=== PATIENT | female | born 1955 | race Caucasian/White ===

== ENCOUNTER → 2016-08-03 | Outpatient (CLI) | payer OTHER ==
[~2016-08-03] MED LIST: ACYCLOVIR SOD1000 MG PO; ADVIL200 MG PO; ALIGN4 MG PO; ASPIR-LOW81 MG PO; BACITRACIN1 PKT TOP; CIPRO500 MG PO; COLACE100 MG PO; DILAUDID 2MG(HYD2 MG PO; DOXYCYCLINE100 MG PO; EFFEXOR XR75 MG PO; FEOSOL325 MG PO; FLAGYL500 MG PO; GLUCOPHAGE850 MG PO; IMODIUM2 MG PO; LEXAPRO20 MG PO; LIPITOR10 MG PO; LOPRESSOR50 MG PO; MAGNESIUM400 MG PO; MIMVEY LO 0.5-1 EACH PO; MIRALAX17 GM PO; MOBIC15 MG PO; NEOMYCIN500 MG PO; NEURONTIN300 MG PO; NITROGLYCERIN0.4 MG SL; NORCO 5-325 MG1 TAB PO; NORCO 5-325 TA1 EACH PO; NORVASC5 MG PO; TYLENOL EXTRA500 MG PO; VITAMIN D-40400 UNIT PO; XARELTO10 MG PO; ZOFRAN4 M1 PO; ZYRTEC10 MG PO
== END | disposition disaster alternative care site (69) ==
LOC: GRAD 09:10
DX: N20.0 Calculus of kidney (principal)

== ENCOUNTER → 2016-09-02 | Outpatient (CLI) | payer OTHER ==
--- NOTE | ~2016-09-02 | ESTC ---
Cardiac Perfusion Imaging Demographics Patient Name ARTHUR Gender Female JONATHAN Dykes Patient Number [id number] Race Visit Number [id number] Ethnicity Corporate ID Room Number Accession Number [id number] Height Date of 1955 Weight Age 61 year(s) BSA Referring Physician Alexandria Covarrubias MD BMI Jere Guevara Interpreting Jere Date of study 09/02/2016 Physician Ismael Supervising /BECKY ELDRIDGE Technologist Adrianna Guevara Ordering Physician Jere Saenz Rokandace Guevara trailer technician RDCS, RVT Stress ECG Reading Jere Nurse Vlad Garcia Physician Ismael Procedure Procedure Type: Nuclear Stress Test:Cardiolite Stress Test Procedure Start time: 09/02/2016 08:00 Indications: Angina and Dyspnea. Risk Factors The patient risk factors include:obesity, former tobacco use, treated hypercholesterolemia, treated hypertension, family history of premature CAD appeared at age 61, orally-treated diabetes mellitus, dyslipidemia and ( years not smokin). Conclusions Summary Perfusion Images: The overall quality of the study is good. Left ventricular cavity is noted to be normal on the stress and rest studies. There is no evidence of abnormal lung activity. The right ventricle is not visualized and cannot be assessed. Stress SPECT images demonstrate homogenous tracer distribution throughout the myocardium except for a mild decrease uptake in the area involving the lateral wall on rest images most likely due to soft tissue attenuation. Gated SPECT imaging reveals normal myocardial thickening and wall motion. The left ventricular ejection fraction was calculated to be 73%. Impression ECG portion of stress test is clinically negative for ischemia by diagnostic criteria. Myocardial perfusion imaging is probably normal. The mild lateral wall defect worse on rest images with normal wall motion is most likely due to artifact. Overall left ventricular systolic function was normal without regional wall motion abnormalities. There are no previous studies for comparison . Stress Protocols Resting ECG Sinus rhythm Pre-stress physical exam: Patient assessed by Dr Simms prior to testing. Predicted HR: 160 bpm ECG Findings No ECG changes suggestive of ischemia. Arrhythmias No rhythm abnormality. Symptoms [place] Stress Interpretation ECG portion of stress test is negative for ischemia by diagnostic criteria. Nuclear images are pending Imaging Results Summed scores - Summed stress score: 13 - Summed rest score: 15 - Summed difference score: -2 Stress ejection Ejection fraction:73 % EDV :124 ml ESV :33 ml Stroke volume :91 ml LV mass :150 gr Imaging Protocols Rest Stress Isotope:Tc99m Sestamibi IV Isotope: Tc99m Sestamibi IV Isotope dose:14.5 mCi Isotope dose:45 mCi Date:09/02/2016 06:57 Date:09/02/2016 08:35 Technique: SPECT Technique: Gated Supine SPECT Supine Scan Time:45-60 minutes post Scan Time:45-60 minutes post injection injection Procedure Medications - Regadenoson (Lexiscan) 0.4 mg IV over 10-15 sec. I.V. 0.4 mg. Medical History Admission Data Admission date: 09/02/2016 Admission Time: 06:40 Hospital Status: Outpatient. Signatures dtt: ISMAEL SIMMS dtd: 09/02/16 0800 Physician Self Edit
--- NOTE | ~2016-09-02 | PUL ---
PATIENT'S NAME: JONATHAN GIBSON [facility] AGE: 61 Y [address] ROOM: [place] [address] LOCATION: [facility] ADMIT DATE: 09/02/2016 Pulmonary DISCHARGE DATE: FAMILY PHYSICIAN: Lamar Ibrahim MD ATTENDING PHYSICIAN: ASH SIMMS NAME OF PROCEDURE: Pulmonary Function Test DATE OF PROCEDURE: September 02, 2016 TECH: JEFF Omalley REASON FOR EXAM: Dyspnea RESULTS: 1. FVC was 2.49 liters which is 78% of predicted and low, FEV1 was 2.09 liters which is 85% of predicted and normal, and FEV1/FVC was 84% and normal. The flow volume curve did not reveal any significant airflow limitation. After bronchodilator administration FVC increased to 2.57 liters which is a 3% increase and FEV1 decreased to 2.02 liters. FEV1/FVC was 79%. 2. DLCO was 15.3 with an adjusted DLCO of 16.5 which is 65% of predicted and low. 3. Total lung capacity was 4.79 liters which is 102% of predicted and normal, and residual volume was 2.3 liters which is 131% of predicted and normal. PHYSICIAN INTERPRETATION: The patient has no airflow limitation and no significant bronchodilator response. There is no evidence of restrictive lung disease. Her diffusion capacity is mildly low. This pattern of pulmonary function test can be seen in pulmonary vascular disorders. Clinical correlation is advised. MD CATRINA LOPEZ/madie /[id number] dtt: 09/06/16 1554 , KAYLENE PITT dtd: 09/06/16 0819
== END | disposition disaster alternative care site (69) ==
LOC: GRAD 08-30 07:00
DX: R06.00 Dyspnea, unspecified (principal); Z87.891 Personal history of nicotine dependence; E66.9 Obesity, unspecified; E78.00 Pure hypercholesterolemia, unspecified; E11.9 Type 2 diabetes mellitus without complications; E78.5 Hyperlipidemia, unspecified; I10 Essential (primary) hypertension
CPT/HCPCS: A9500; J2785

== ENCOUNTER 2016-11-21 18:54 | Inpatient (IN) | payer OTHER ==
[~2016-11-21] VITALS: Ht 160 cm; Wt 92.9 kg
--- NOTE | ~2016-11-21 | HP ---
PATIENT'S NAME: JONATHAN GIBSON [facility] AGE: 61 Y [address] ROOM: [id number] [place], [place] [address] LOCATION: [facility] ADMIT DATE: 11/21/2016 History & Physical DISCHARGE DATE: FAMILY PHYSICIAN: Lamar Ibrahim MD ATTENDING PHYSICIAN: ZIGGY JACK DATE OF SERVICE: CHIEF COMPLAINT: "Not feeling well." HISTORY OF PRESENT ILLNESS: I do not have complete information on this patient, as we are still waiting for some labs from the PMD's office. However, her history is provided by the patient and her family who are excellent historians. She is a 61-year-old female, who was discharged from [place] approximately 6 days ago. While in [place], the patient has undergone a reversal of colostomy and placement of an ileostomy with an intention of eventual takedown. The patient had a colostomy placed here approximately 9 months ago due to complicated case of diverticulitis, which required resection and has been having difficulties with a colostomy ever since, and as such, was sent to [place]. The patient also has past medical history of significant urolithiasis with prior stone extractions and stents. The patient and family reports that the patient has had bilateral urethral stents placed for the colostomy surgery to scarlett the ureters. Subsequent to the surgery, they were removed, but after that, the patient developed renal failure and apparently decided to be placed back in. The patient was released from the hospital in [place] on the 15 of November. Since then, she has been experiencing generalized fatigue, diminished appetite, and some nausea without any vomiting. Today, the patient went to see her primary care provider, Dr. Ibrahim, for staple removal. Apparently, she was found to have a UTI as well as acute kidney injury with a creatinine of 2, though I do not have those labs as of yet. Initially, she was instructed to go home, but once the labs came back, she was instructed to come to the hospital. The patient also was seeing Dr. Espinoza for vaginal bleeding today. This was attributed to discontinuation of her control and she had an ultrasound and the biopsy, with the ultrasound apparently being "normal." The patient denies any fevers, chills, chest pain, shortness of breath, diaphoresis, or syncope. PATIENT'S NAME: JONATHAN GIBSON [facility] AGE: 61 Y [address] ROOM: [place] [address] LOCATION: [facility] ADMIT DATE: 11/21/2016 History & Physical DISCHARGE DATE: FAMILY PHYSICIAN: Lamar Ibrahim MD ATTENDING PHYSICIAN: ZIGGY JACK REVIEW OF SYSTEMS: All systems have been reviewed and are negative aside from pertinent positives mentioned above. PAST MEDICAL HISTORY: 1. As provided by the patient is the surgical history/urological history as described in the HPI. 2. Essential hypertension. 3. Prediabetes. 4. Sepsis due to Enterococcus. SURGICAL HISTORY: Listed above is significant for bilateral knee arthroplasties. SOCIAL HISTORY: The patient has no active toxic habits, and quit tobacco use approximately 3 years ago. FAMILY HISTORY: Reviewed and noncontributory due to multiple underlying problems. CURRENT MEDICATIONS: 1. [place]. 2. Amlodipine 5. 3. Aspirin 81. 4. Atorvastatin 10. 5. Cetirizine 10. 6. Estradiol/norethisterone. 7. Metformin 850 with meals. 8. Metoprolol 50 twice a day. 9. Neomycin for dental work. 10. Effexor 150. PHYSICAL EXAMINATION: VITAL SIGNS: Temperature is 97.9, blood pressure 112/79, heart rate 91, respirations 16, and saturating 96% on room air. GENERAL: Appears as a well-developed, well-nourished, middle-aged female, in no acute distress. SKIN: Pale. NEUROLOGICAL: Nonfocal. HEENT: Eye exam shows pupils are equal and reactive to light. LYMPHATIC: Shows no cervical lymphadenopathy. ENDOCRINE: Shows no thyromegaly. LUNGS: Clear to auscultation. HEART: Regular. No appreciable murmurs, gallops, or rubs. PATIENT'S NAME: JONATHAN GIBSON [facility] AGE: 61 Y [address] ROOM: [place] [address] LOCATION: [facility] ADMIT DATE: 11/21/2016 History & Physical DISCHARGE DATE: FAMILY PHYSICIAN: Lamar Ibrahim MD ATTENDING PHYSICIAN: ZIGGY JACK ABDOMEN: Soft, nontender, nondistended. A right ileostomy is appreciated draining greenish liquid. SKIN: Reveals a midline incision with small areas of superficial dehiscence and some greenish drainage as well as prior colostomy site, which seems to be closing, but also has some small areas of superficial skin dehiscence and some greenish drainage. VASCULAR: 2+ pedal pulses. MUSCULOSKELETAL: Unremarkable. PSYCHIATRIC: Appropriate mood, cognition, and affect. ASSESSMENT AND PLAN: This is a 61-year-old female, who will be admitted with: 1. Reported acute kidney injury. We will hydrate the patient. We will repeat all her labs here, as I do not have her most recent set of labs. We will also get a renal ultrasound given her prior urological history. 2. Reported urinary tract infection. We will need to get a urinalysis with a culture here. We will treat her empirically given presence of foreign objects and prior history of multiple infections. 3. Wound Care. We will start treating her wound with Bactroban and request a wound as well as a surgical consult to help manage her wounds. 4. At this point, I do not see an indication for a CAT scan, but we will await the results of her labs and decide on imaging studies in addition to the ultrasound that is already planned. 5. Prediabetes. We will discontinue her metformin given elevated renal function. 6. Essential hypertension. We will continue her on amlodipine and metoprolol and hold them as needed. 7. Additional management will depend on clinical course and labs and imaging studies that are planned. Time dedicated to this patient's encounter is 35 minutes. MD CALEB PEARSON/rosenda /[id number] D: [id number] T: [id number] HISTORY & PHYSICAL
--- NOTE | ~2016-11-21 | DS ---
PATIENT'S NAME: JONATHAN GIBSON [facility] AGE: 61 Y [address] ROOM: [address] [place], [place] [address] LOCATION: [facility] ADMIT DATE: 11/21/2016 Discharge Summary DISCHARGE DATE: 11/23/2016 FAMILY PHYSICIAN: Lamar Ibrahim MD ATTENDING PHYSICIAN: James Gomez V FINAL DIAGNOSES: 1. Acute kidney injury. 2. Abdominal wound dehiscence. 3. Diabetes mellitus. 4. Urinary tract infection. 5. Essential hypertension. CONSULTANTS ON THE CASE: Adiel Richard MD and Estefany Barragan APRN from Wound. HOSPITAL COURSE: Please see details of admission in H and P by Dr. Gomez. Briefly, the patient was admitted with creatinine elevation with a level of 1.9. The patient did have a urinalysis positive for nitrites and leukocyte esterase, and it was thought that the PERLA was due to urinary tract infection. The patient was started on Cipro. She was covered with Lovenox for DVT prophylaxis. Tylenol was utilized for pain. The patient was pancultured with blood cultures, urine cultures, and procalcitonin. The patient did have Accu- Cheks twice daily, and was covered with sliding scale for any elevations. The patient's pain was a little out of control, and we did increase her pain medication to [place] 10/325. Wound Care consult was on the and recommended possible wound VAC and a Surgical consultation for further evaluation and treatment. Dr. Richard saw the patient on the , and just recommended twice daily wet-to-dry dressing changes. On the , the patient was doing much better. It was felt that from a renal standpoint, her creatinine had come down to 1.2, and that she could safely be discharged home. The patient was educated on abdominal wound dressing changes as well as ostomy information, and felt stable to discharge home. DIAGNOSTICS AND LABORATORY DATA: Blood sugars ranged from 97 to 117. On admission, sodium was 133, potassium was 4.4, chloride was 102, bicarb was 19, glucose was 104, BUN was 45, creatinine was 1.9, albumin was 3.4, Mag was 2.1, and TSH was 1.72. On discharge, sodium had risen to 137, creatinine dropped to 1.2, and pre-albumin was 29. Hemogram remained stable throughout her stay. Urinalysis was brown in color with nitrite and leukocyte esterase positive, and 500 of protein noted. On micro, 10 to 20 white blood cells, packed field of red blood cells, and few bacteria. Urine culture just showed contaminants of 52,000 colonies. Blood culture showed no growth to date. DISCHARGE INSTRUCTIONS: The patient was discharged home. She is to resume a PATIENT'S NAME: JONATHAN GIBSON [facility] AGE: 61 Y [address] ROOM: [address] [address] LOCATION: [facility] ADMIT DATE: 11/21/2016 Discharge Summary DISCHARGE DATE: 11/23/2016 FAMILY PHYSICIAN: Lamar Ibrahim MD ATTENDING PHYSICIAN: James Gomez V diabetic diet and resume previous activity level. She will follow up with Wound Ostomy Continence nurse at [facility] on 11/28/2016 at 08:30 a.m., to follow up with Dr. Richard in one week, and she will see Dr. Ibrahim in 1 week. Home Health will be resumed upon her discharge. The patient was instructed that if difficulties arise with her ostomy, she is to return to using her previous device and follow up with Wound Care on Monday. Home Health is to draw a metabolic panel on 11/25/2016 and fax it to Dr. Ibrahim. DISCHARGE MEDICATIONS: 1. Norvasc 5 mg daily. 2. Aspirin 81 mg daily. 3. Cipro 500 mg twice daily #2 days worth. 4. Zyrtec 10 mg at bedtime. 5. Metoprolol 50 mg twice daily. 6. Bactroban one application topically twice daily to wounds. 7. Effexor 150 mg daily. 8. Estradiol/norethindrone one tablet daily. 9. [place] 10/325 one tablet every 4 hours as needed. 10. Neomycin p.r.n. dental work. 11. Metformin 850 mg twice daily with meals. 12. Lipitor 10 mg daily. 13. Ferrous sulfate 325 mg twice daily. 14. Nitroglycerin 0.4 mg sublingual p.r.n. We do appreciate participating in this patient's care, and thank you very much for the ability to serve them while hospitalized at [facility]. Time spent coordinating details of discharge was less than 30 minutes of which was spent coordinating with consulting physician and care management, completion of medication reconciliation, and education to the patient and family on the above-mentioned diagnoses. ANGEL RAM FOR IDRIS FIELD MD TYRON/modl /[id number] d: 11/24/16 0500 t: 12/12/16 1619, DISCHARGE SUMMARY
--- NOTE | ~2016-11-21 | CON ---
PATIENT'S NAME: JONATHAN GIBSON [facility] AGE: 61 Y [address] ROOM: [facility] [place] [place] [address] LOCATION: G3N ADMIT DATE: 11/21/2016 Consultation DISCHARGE DATE: FAMILY PHYSICIAN: Lamar Ibrahim MD ATTENDING PHYSICIAN: CHRISTIANO SANCHEZ V CHIEF COMPLAINT: "I have a wound on my abdomen." HISTORY OF PRESENT ILLNESS: The patient is a 61-year-old female who is approximately 2 weeks status post colostomy reversal with ileostomy placement. This was performed in [place]. She had originally presented with sepsis here, was found to have a perforation in her sigmoid colon. She had resection an ostomy. We had planned ostomy reversal and had cleaned her distal stump out with an enema. This created significant pain. We then studied this with barium. No leak was identified, but she again got severe pain and fevers, had CT that was consistent with the inflammation and diverticulitis, because of this, we had her wait for surgical intervention ultimately, discussed with her having repeat resection in [place]. This was recently performed and now presents with acute kidney failure. She also had her misael removed very recently. With removal of her misael, she has had an opening. There was concern about a wound dehiscence. She has been having no fevers. She is feeling much better today. She has been rehydrated. CURRENT MEDICATIONS: 1. Cetirizine. 2. Estradiol. 3. Aspirin. 4. Lopressor. 5. Neomycin. 6. Hydrocodone. 7. Metformin. 8. Amlodipine. 9. Atorvastatin. 10. Venlafaxine. 11. Ferrous sulfate. 12. Nitroglycerin. ILLNESSES: 1. Hypertension. 2. Hyperlipidemia. SOCIAL HISTORY: Nonsmoker. FAMILY HISTORY: PATIENT'S NAME: JONATHAN GIBSON [facility] AGE: 61 Y [address] ROOM: [place] [address] LOCATION: G3N ADMIT DATE: 11/21/2016 Consultation DISCHARGE DATE: FAMILY PHYSICIAN: Lamar Ibrahim MD ATTENDING PHYSICIAN: CHRISTIANO SANCHEZ V Noncontributory. REVIEW OF SYSTEMS: Denies headache, vision changes, or abdominal pain. PHYSICAL EXAMINATION: GENERAL: Pleasant 61-year-old female, in no acute distress. HEENT: Head is normocephalic. Eyes are anicteric. HEART: Regular rate and rhythm. LUNGS: Clear to auscultation bilaterally. ABDOMEN: Soft. She does have an opening in her skin approximately 4 cm. This does probe to a depth of approximately 5 cm. However, on palpation of this area, I feel the fascia is intact. There is not large volume of fluid extending from this either. Her ileostomy is pink. ASSESSMENT: Superficial wound dehiscence. PLAN: At this point in time, we discussed VAC versus b.i.d. dressing changes. She does not wish to have a VAC. We will continue this as she still has a followup with her surgeon, Dr. Brooke in [place], but at this point in time, would not recommend surgical intervention. PEGGY J MD SAAD SMITH/theresal /[id number] d: 11/22/16 2254 t: 12/02/16 0609, CONSULTATION REPORT
--- NOTE | ~2016-11-21 | CON ---
PATIENT'S NAME: JONATHAN GIBSON [facility] AGE: 61 Y [address] ROOM: [place] [address] LOCATION: [facility] ADMIT DATE: 11/21/2016 Consultation DISCHARGE DATE: FAMILY PHYSICIAN: Lamar Ibrahim MD ATTENDING PHYSICIAN: CHRISTIANO SANCHEZ V DATE OF CONSULTATION: 11/22/2016 REFERRING PHYSICIAN: Christiano Sanchez MD REASON FOR CONSULT: Abdominal wound dehiscence. HISTORY OF PRESENT ILLNESS: This is a 61-year-old female patient who was admitted to [facility] with acute kidney injury and urinary tract infection. She has a history of a reversal of her colostomy with placement of an ileostomy with the intention of eventual takedown. The patient reports her ileostomy was placed on November 07 in [place]. She presented to her primary care provider for staple removal and was further admitted to the hospital. She has not been applying any treatment to the site. She is currently denying pain. She denies constitutional symptoms including fevers, chills, or sweats. She reports a fair oral intake. She denies chest pain or shortness of breath. She denies syncope. She does admit to some vaginal bleeding. PAST MEDICAL HISTORY: Essential hypertension, dyslipidemia, osteoarthritis, diverticulitis, nephrolithiasis, frequent UTIs, depression, and prediabetes. PAST SURGICAL HISTORY: Tubal ligation, total knee arthroplasty, cysto with stent placement, left knee arthroplasty, ruptured diverticula with colostomy placed, renal stent, colostomy takedown with temporary ileostomy placed, and 2 ureteral stents. FAMILY HISTORY: Positive for renal failure and CHF. SOCIAL HISTORY: The patient lives in [place]. Per previous records, she quit smoking in 2012. She is a social drinker. ALLERGIES: PENICILLIN, ATORVASTATIN, AND CODEINE. CURRENT MEDICATIONS: PATIENT'S NAME: JONATHAN GIBSON [facility] AGE: 61 Y [address] ROOM: [place] [address] LOCATION: [facility] ADMIT DATE: 11/21/2016 Consultation DISCHARGE DATE: FAMILY PHYSICIAN: Lamar Ibrahim MD ATTENDING PHYSICIAN: CHRISTIANO SANCHEZ V Please refer to the medication administration record. REVIEW OF SYSTEMS: Pertinent positives addressed in the HPI and all the rest are negative. PHYSICAL EXAMINATION: VITAL SIGNS: Temperature 97.9, pulse 81, respirations 14, blood pressure 122/54, and pulse oximetry 97% on room air. Height 5 feet 3 inches and weight 92.9 kg. GENERAL: The patient is alert and oriented x3. Very pleasant with cares. HEENT: Head: Normocephalic, atraumatic. Oral mucosa dry. NEUROLOGIC: Grossly nonfocal. MUSCULOSKELETAL: Able to wiggle toes. ABDOMEN: Soft, nontender. SKIN: Midline incision to abdomen. Distal aspect, dehiscence noted. Area measures 3.0 cm width x 4.5 cm length x 8.0 cm depth. Wound is moist pink with evidence of subcutaneous tissue. Large amount of serous exudate. Periwound is erythemic. No induration. Left upper abdomen old colostomy site measures 4.0 cm width x 1.0 cm length x 0.5 cm depth. Wound bed is mostly scabbed with a small amount of moist pink tissue. Periwound erythemic. Site is slightly indurated. Dried yellow exudate noted. LABORATORY DATA: White blood cell count 9.3, hemoglobin 11.7, hematocrit 36.4, platelets 401. Sodium 133, potassium 4.4, chloride 102, bicarb 19, BUN 45, creatinine 1.9, glucose 104, and pre-albumin 29. ASSESSMENT AND PLAN: Again, this is a 61-year-old female patient who was admitted to [facility] with acute kidney injury and urinary tract infection. Wound Care consult to evaluate abdomen dehiscence. 1. Abdomen dehiscence secondary to recent ileostomy placement. Appears down to subcutaneous tissue. Site will most likely heal by secondary intention. Would like Surgery to consult for further evaluation. The patient would be a VAC candidate; however, it would be difficult to change due to the close proximity of her ileostomy. For now, I instructed nursing to loosely pack the site with gauze changing t.i.d. and p.r.n. saturation. We will continue to follow. The ostomy nurses will follow patient's ileostomy during her hospitalization. I would like to thank Dr. Sanchez for this consult. PATIENT'S NAME: JONATHAN GIBSON [facility] AGE: 61 Y [address] ROOM: [address] [address] LOCATION: [facility] ADMIT DATE: 11/21/2016 Consultation DISCHARGE DATE: FAMILY PHYSICIAN: Lamar Ibrahim MD ATTENDING PHYSICIAN: CHRISTIANO SANCHEZ V EDUARDO GARCIA APRN FOR MD RANJITH RUBIO/modl /[id number] d: 11/23/16 0939 t: 11/30/16 1629, CONSULTATION REPORT
[~2016-11-21 18:54] MED LIST changes: -BACITRACIN1 PKT TOP; -EFFEXOR XR75 MG PO; -FEOSOL325 MG PO; -GLUCOPHAGE850 MG PO; -IMODIUM2 MG PO; -NITROGLYCERIN0.4 MG SL; -NORVASC5 MG PO; -VITAMIN D-40400 UNIT PO; -ZOFRAN4 M1 PO
[2016-11-21] MEDS ORDERED: GLUCOPHAGE850 MG PO (20:19)
[2016-11-21] MEDS ORDERED: NORVASC5 MG PO (20:21)
[2016-11-21] MEDS ORDERED: LIPITOR10 MG PO (20:21)
[2016-11-21] MEDS ORDERED: EFFEXOR XR75 MG PO (20:24)
--- NOTE | 2016-11-21 20:51 | NUR ---
Patient is 61 yo femaled admitted this evening for acute kidney injury, recent take down of colostomy and temporary ileostomy placed after she had a ruptured diverticuli last year after she had her knee replaced. Patient came home from [place] last week. Saw her Dr on Monday, misael were removed today by Dr. Ibrahim. patient was not feeling well and it was recommended that she be admitted to the hospital w/UTI. IV is started in patient's right hand w/20 ga intracath without diff. pt pooja well. patient's incision is midline with a slight curve left laterally from the umbilicus. there is some erythema on the superior aspect of the incision, but is approximated. the distal area of the incision not all the way distal there is some slight dehiscence approx 1.5 cm X 0.5 cm. left laterally to the incision is the area where the colostomy takedown was done. the misael were removed from here today also. the entire perimeter is slightly erythematous also. the incision is slightly dehisced here as well approx 1 cm by 2.5-3 cm. slight drainage is noted on the dressing from both areas of dehiscence, was slightly yellow in color. Education was given as documented. patient and family deny questions. pneumatics are on bilat calves. pt pooja well. call light is within reach. Report is given to UMESH Allison.
[2016-11-21 22:56] LABS: BASOPHIL % 0.3 %; EOSINOPHIL # 0.2 K/uL (0.0-0.5); EOSINOPHIL % 1.9 %; HEMATOCRIT 36.4 % (33.0-46.0); HEMOGLOBIN 11.7 g/dL (10.0-15.0); IMMATURE GRANULOCYTE # 0.1 K/uL (0.0-0.3); IMMATURE GRANULOCYTE % 1.2 %; LYMPHOCYTE # 1.6 K/uL (0.8-4.0); LYMPHOCYTE % 16.6 %; MCH 26.7 pg (27.0-34.0); MCHC 32.1 gm/dL (32.0-36.5); MCV 82.9 fl (83.0-98.0); MONOCYTE # 0.8 K/uL (0.0-1.0); MONOCYTE % 8.5 %; MPV 9.2 fl (9.4-12.4); NEUTROPHIL # (ANC) 6.7 K/uL (1.8-7.8); NEUTROPHIL % 71.5 %; NRBC % 0 /100WBC (0-0.00); PLATELET COUNT 401 K/uL (150-450); RDW-CV 15.5 % (11.9-14.6); WBC 9.3 K/uL (4.0-11.0)
[2016-11-21 22:57] LABS: RBC 4.39 M/uL (3.50-5.50)
[2016-11-21 23:16] LABS: INR - (THERAPEUTIC) 0.95 (0.92-1.07); PTT 28 SECONDS (25-32)
[2016-11-21 23:17] LABS: ALBUMIN 3.4 gm/dL (3.5-5.0); ANION GAP 16.4 (10.0-19.0); CALCIUM 9.3 mg/dL (8.5-10.5); CREATININE 1.9 mg/dL (0.5-1.1); MAGNESIUM 2.1 mg/dL (1.8-2.6); PHOSPHORUS 4.7 mg/dL (2.5-4.9); POTASSIUM 4.4 mMol/L (3.7-5.1); TOTAL BILIRUBIN 0.3 mg/dL (0.0-1.5); TOTAL PROTEIN 8.9 g/dL (6.0-8.4)
[2016-11-22 03:12] LABS: BILIRUBIN URINE NEGATIVE (NEGATIVE); BLOOD URINE 250 /UL (NEGATIVE); COLOR URINE BROWN (YELLOW); GLUCOSE URINE NEGATIVE (NEGATIVE); KETONE URINE 5 mg/dL (NEGATIVE); LEUKOCYTES URINE 100 /UL (NEGATIVE); NITRITE URINE POSITIVE (NEGATIVE); PROTEIN URINE 500 mg/dL (NEGATIVE); SPEC GRAVITY URINE 1.025 (1.003-1.035); TURBIDITY URINE 3+ (CLEAR); UROBILINOGEN URINE NORMAL (NORMAL)
[2016-11-22 03:23] LABS: RBC URINE PACKED FIELD #/HPF (NEGATIVE)
[2016-11-22 03:24] LABS: AMORPHOUS URINE 1+ (NEGATIVE); BACTERIA URINE FEW (NEGATIVE); EPITHELIAL URINE RARE #/HPF (NEGATIVE)
--- NOTE | 2016-11-22 04:37 | NUR ---
Significant Event: PATIENT ALERT AND ORIENTED X 3. VSS. TAKING SMALL AMOUNTS OF PO. VOIDING WITHOUT DIFFICULTY BUT URINE BLOODY. HAS ILEOSTOMY - EMPTIED BY PATIENT X 3 THIS SHIFT. HAS ABDOMINAL INCISION FROM COLOSTOMY TAKEDOWN. INCISION REDDNED AND HAS 3 OPEN AREAS WITH SOME YELLOW DRAINAGE. DEJAH WERE REMOVED AT [facility] TODAY. DRESSING PLACED OVER INCISION. HAS ABDOMINAL BINDER IN PLACE. UP WITH 1 ASSIST IN ROOM. PAIN WELL CONTROLLED WITH NORCO LAST AT 2218. IV INFUSING IN RIGHT HAND WITHOUT DIFFICULTY. PLEASNAT AND COOPERTIVE WITH CARES. Follow up:
[2016-11-22] MEDS ORDERED: FEOSOL325 MG PO (10:05)
[2016-11-22] MEDS ORDERED: NITROGLYCERIN0.4 MG SL (10:06)
--- NOTE | 2016-11-22 16:47 | NUR ---
Significant Event: Pt is a/o. Cooperative with cares. Has been up in levi and sat in chair, with much encouragement. She has been empyting ileostomy. WOC and Dr Mathias have seen abd incisions. Medial distal end has dehisced. Wet to dry dressing changes BID. Has been done once today. [place] for pain. Will need to check ileostomy Q 2hr during night and empty as needed, that way it doesnt leak or is kinked. Follow up:
[2016-11-23 05:50] LABS: BASOPHIL % 0.4 %; EOSINOPHIL # 0.2 K/uL (0.0-0.5); EOSINOPHIL % 2.7 %; HEMATOCRIT 31.5 % (33.0-46.0); HEMOGLOBIN 9.7 g/dL (10.0-15.0); IMMATURE GRANULOCYTE # 0.1 K/uL (0.0-0.3); IMMATURE GRANULOCYTE % 0.9 %; LYMPHOCYTE # 1.3 K/uL (0.8-4.0); LYMPHOCYTE % 22.8 %; MCH 25.8 pg (27.0-34.0); MCHC 30.8 gm/dL (32.0-36.5); MCV 83.8 fl (83.0-98.0); MONOCYTE # 0.8 K/uL (0.0-1.0); MONOCYTE % 13.4 %; MPV 8.6 fl (9.4-12.4); NEUTROPHIL # (ANC) 3.4 K/uL (1.8-7.8); NEUTROPHIL % 59.8 %; NRBC % 0 /100WBC (0-0.00); PLATELET COUNT 351 K/uL (150-450); RBC 3.76 M/uL (3.50-5.50); RDW-CV 15.3 % (11.9-14.6); WBC 5.6 K/uL (4.0-11.0)
--- NOTE | 2016-11-23 05:51 | NUR ---
Significant Event: PATIENT IS ALERT AND ORIENTED. PATIENT NEEDS INCREASED ENCOURAGEMENT TO GET UP TO CHAIR TID. AMBULATES TO BATHROOM TO EMPTY OWN OSTOMY BAG. WET TO DRY DRESSING TO ABDOMINAL WOUND. WE ARE TO PACK VERY LIGHTLY. PATIENT WAS OFFERED NORCO AT 0550 AND SHE DENIED THE NEED. NS INFUSING AT 100 ML/HR. BG BID. ABD BINDER ON AT ALL TIMES. Follow up:
[2016-11-23 06:13] LABS: ANION GAP 14.2 (10.0-19.0); CALCIUM 8.3 mg/dL (8.5-10.5); CREATININE 1.2 mg/dL (0.5-1.1); POTASSIUM 4.2 mMol/L (3.7-5.1)
--- NOTE | 2016-11-23 14:30 | NUR ---
RECEIVED REFERRAL THAT PATIENT CAN BE DISCHARGE HOME AND THAT TODAY AND WILL NEED TO RESUME [facility]. I SPOKE TO RUBEN WITH [facility] AND THEY WILL PLAN ON SEEING PATIENT TOMORROW. AND I FAXED ORDERS TO HER. I ALSO SPOKE TO PATIENT SHE IS PLANNING ON GOING HOME TODAY WITH [facility]. AND SHE DOES NOT ANTICIPATE ANY DISCHARGE NEEDS AT THIS TIME.
[2016-11-23] MEDS ORDERED: CIPRO500 MG PO (15:12)
[2016-11-23] MEDS ORDERED: BACITRACIN1 PKT TOP (15:14)
[2016-11-23] MEDS ORDERED: NORCO 5-325 TA1 EACH PO (15:18)
--- NOTE | 2016-11-23 16:13 | NUR ---
Patient was AOx3. VSS. Dressing was C/D/I. Patient had no questions or concerns about discharge instructions. Home Health to follow up at home. Patient was wheeled out to lobby for dismissal home with daughter.
[2016-12-16] MEDS ORDERED: IMODIUM2 MG PO (13:57)
== END 2016-11-23 16:00 | disposition home health service (06) | DRG 683 ==
LOC: GMSU 18:54 → G3N 18:54
PROVIDERS: Nurse Practitioner Family; ADMIT Internal Medicine
DX: N17.9 Acute kidney failure, unspecified (principal); N39.0 Urinary tract infection, site not specified; T81.30XA Disruption of wound, unspecified, initial encounter; E11.9 Type 2 diabetes mellitus without complications; I10 Essential (primary) hypertension; E78.5 Hyperlipidemia, unspecified; J30.2 Other seasonal allergic rhinitis; N93.9 Abnormal uterine and vaginal bleeding, unspecified; Z43.2 Encounter for attention to ileostomy; Z90.49 Acquired absence of other specified parts of digestive tract; Z87.891 Personal history of nicotine dependence; Z79.84 Long term (current) use of oral hypoglycemic drugs; Z79.82 Long term (current) use of aspirin; Z88.0 Allergy status to penicillin
CPT/HCPCS: A9270; J1650; J7030

== ENCOUNTER → 2016-11-25 | Outpatient (CLI) | payer OTHER ==
[~2016-11-25] MED LIST changes: +BACITRACIN1 PKT TOP; +EFFEXOR XR75 MG PO; +FEOSOL325 MG PO; +GLUCOPHAGE850 MG PO; +IMODIUM2 MG PO; +NITROGLYCERIN0.4 MG SL; +NORVASC5 MG PO; +VITAMIN D-40400 UNIT PO; +ZOFRAN4 M1 PO
[2016-11-25 20:18] LABS: ANION GAP 16.1 (10.0-19.0); CALCIUM 9.4 mg/dL (8.5-10.5); CREATININE 1.4 mg/dL (0.5-1.1); POTASSIUM 4.1 mMol/L (3.7-5.1)
== END | disposition disaster alternative care site (69) ==
LOC: LHHL 20:00
PROVIDERS: Family Medicine
DX: I12.9 Hypertensive chronic kidney disease with stage 1 through stage 4 chronic kidney disease, or unspecified chronic kidney disease (principal); N18.9 Chronic kidney disease, unspecified

== ENCOUNTER 2016-11-27 17:18 | Inpatient (IN) | payer OTHER ==
[~2016-11-27] VITALS: Ht 160 cm; Wt 93.8 kg
--- NOTE | ~2016-11-27 | ER ---
PATIENT'S NAME: JONATHAN GIBSON [facility] AGE: 61 Y [address] ROOM: [place] [address] LOCATION: ED ADMIT DATE: 11/27/2016 ER/Outpatient Report DISCHARGE DATE: FAMILY PHYSICIAN: Lamar Ibrahim MD ATTENDING PHYSICIAN: Justine Arreola Time of Arrival: 1718 hours. Time of Evaluation/Seen: 1735 hours. IDENTIFICATION: A 61-year-old female. CHIEF COMPLAINT: Nausea and vomiting. HISTORY OF PRESENT ILLNESS: The patient is a 61-year-old female with a fairly complicated past medical history. The patient was discharged from [place] approximately on November 15. While in [place], she had undergone a reversal of colostomy and placement of an ileostomy with an intention of eventual takedown. The patient had a colostomy placed here in November of 2015 for perforated viscus, perforated sigmoid colon after presenting acutely ill and septic to the hospital. That was a complicated case of diverticulitis, which required resection and she had been having difficulties with her colostomy and was sent to [facility] where she had this next surgery. She also has a history of urolithiasis and has bilateral ureteral stents. She was hospitalized here from November 21 to for acute kidney injury, abdominal wound dehiscence, and she has been doing daily wet-to- dry dressing changes. She has had no fever, chills, but just has not been feeling well over the past couple of days. PAST MEDICAL HISTORY: ALLERGIES: LIPITOR, PENICILLIN, AND CODEINE. CURRENT MEDICATIONS: 1. Metformin 850 mg b.i.d. 2. Metoprolol 50 mg b.i.d. 3. Aspirin 81 mg daily. 4. Amlodipine 5 mg daily. 5. Cetirizine 10 mg daily. 6. Atorvastatin 10 mg daily. 7. Ferrous sulfate 325 mg b.i.d. 8. daily. 9. Effexor 150 mg daily. PATIENT'S NAME: JONATHAN GIBSON [facility] AGE: 61 Y [address] ROOM: [place] [address] LOCATION: ED ADMIT DATE: 11/27/2016 ER/Outpatient Report DISCHARGE DATE: FAMILY PHYSICIAN: Lamar Ibrahim MD ATTENDING PHYSICIAN: Justine Arreola MEDICAL PROBLEMS: 1. Hypertension. 2. Prediabetes. 3. Sepsis due to enterococcus. 4. Complicated course of diverticulitis resulting in resection and colostomy. 5. Wound dehiscence. 6. Hyperlipidemia. 7. Hypertension. 8. Obesity. PAST SURGICAL HISTORY: Prior surgeries: 1. Bilateral total knee arthroplasty. 2. Ureteral stents. 3. Lithotripsy. 4. Colectomy. 5. Colostomy. 6. Tubal ligation. 7. Reversal of colostomy and placement of an ileostomy. SOCIAL HISTORY: The patient lives here in [place]. She is . Tobacco use, quit 3-1/2 years ago. Alcohol use, socially. Drug use, denies. REVIEW OF SYSTEMS: All systems reviewed and negative other than what is noted in the HPI. FAMILY HISTORY: No pertinent family history identified. PHYSICAL EXAMINATION: VITAL SIGNS: Height 5 feet 3 inches and weight 93.8 kg. Blood pressure 115/55, pulse 104, respiratory rate 16, temperature 98.2, and saturations 94% on room air. GENERAL: A 61-year-old female, in no acute distress. HEENT: Head; normocephalic and atraumatic. Ears; TMs translucent in both ears. Nose; mucosa pink, no lesions. Mouth; no lesions. Pharynx benign. NECK: Supple. No lymphadenopathy. LUNGS: Clear to auscultation. HEART: Regular rate and rhythm. ABDOMEN: Soft, nondistended, tender to palpation. No rebound or guarding. Ileostomy is draining adequately, but she does have a little bit of leaking on the medial aspect of the ileostomy appliance. PATIENT'S NAME: JONATHAN GIBSON [facility] AGE: 61 Y [address] ROOM: [place] [address] LOCATION: [facility] [employer] ADMIT DATE: 11/27/2016 ER/Outpatient Report DISCHARGE DATE: FAMILY PHYSICIAN: Lamar Ibrahim MD ATTENDING PHYSICIAN: Justine Arreola SKIN: She has a midline incision with an area of dehiscence at the caudal portion of this. No surrounding erythema, and then she has a superficial wound where the previous colostomy had been taken down that is covered with gauze. EXTREMITIES: Trace of edema. No calf tenderness. NEUROLOGIC: The patient is alert and oriented x4. Cranial nerves 2 through 12 grossly intact. Motor strength 5/5 throughout. Sensation is intact to light touch. EMERGENCY DEPARTMENT COURSE: An IV was initiated. Normal saline at 200 mL/h. Dilaudid 0.5 mg IV for pain. Zofran 4 mg IV for nausea. CBC, urine, chemistry, amylase, and lipase have been ordered. It is shift change and Dr. Bell will assume care at this time. JUSTINE ARREOLA MD CAR/modl /[id number] d: 11/27/161955 t: 12/03/162018, OUTPATIENT REPORT
--- NOTE | ~2016-11-27 | DS ---
PATIENT'S NAME: JONATHAN GIBSON [facility] AGE: 61 Y [address] ROOM: [address] [address] LOCATION: [facility] ADMIT DATE: 11/27/2016 Discharge Summary DISCHARGE DATE: 11/30/2016 FAMILY PHYSICIAN: Lamar Ibrahim MD ATTENDING PHYSICIAN: James Gomez V PRINCIPAL DIAGNOSES: 1. Acute kidney injury. 2. Metabolic acidosis. 3. Nausea with vomiting. 4. Uob-rmlmyhg-jfmockgyd diabetes mellitus. 5. Isolated alkaline phosphatase elevation. 6. Mild vitamin D deficiency. 7. Anemia. 8. Colostomy with superficial wound dehiscence. HOSPITAL COURSE: Please reference any of the admitting data to the history and physical as dictated by Dr. Gomez. Briefly, a 61-year-old female with colostomy takedown surgery approximately 20 days ago secondary to a history of previous ruptured diverticulum, presented to the emergency room with diminished appetite and associated nausea, vomiting, and leaking ileostomy. Evaluation found her to be in acute kidney failure with an elevated creatinine of 2.3 with a bicarbonate level of 17. Anion gap was closed. She was admitted into the hospital for further evaluation and management. She was started on IV fluids and kept n.p.o. overnight. Wound, Ostomy, and Continence Nursing was consulted to help manage her ileostomy appliance as well as her superficial wound secondary to a recent wound dehiscence. She was given symptomatic support of nausea and vomiting. She did relatively well overnight. Nausea had decreased. We did start her on clear liquids, and she was able to advance as she tolerated over the course of her stay. She was, however, still acidotic, so she was given IV bicarbonate 4 L and then serially monitored once complete, and we saw her creatinine fall from 2.3 down to 1.2. With that correction, appetite improved and was able to tolerate solid foods on the day of discharge. There was also felt to be some correlation of the abdominal discomfort as well as the nausea and vomiting associated with the iron tablets and metformin, so they were ceased, and our recommendations were for indefinite cessation. The patient also presented with an elevated alkaline phosphatase of 700 and a total bilirubin of 0.4. Further evaluation did not show any elevation of her AST or ALT. Amylase and lipase were negative. We did evaluate with an abdominal ultrasound which showed no acute problems. The biliary tree was borderline with the common duct at 7 mm, but this is to be expected with her recent surgical changes. She also had a CT abdomen and pelvis which had shown PATIENT'S NAME: JONATHAN GIBSON [facility] AGE: 61 Y [address] ROOM: [place] [address] LOCATION: [facility] ADMIT DATE: 11/27/2016 Discharge Summary DISCHARGE DATE: 11/30/2016 FAMILY PHYSICIAN: Lamar Ibrahim MD ATTENDING PHYSICIAN: James Gomez V no acute problems; however, did mention she had several punctate, nonobstructive, left renal stones as well as double-J bilateral ureteral stents with mild dilatation of the renal collecting system which did not appear as certain significance. Ostomy site was good. We trended her alkaline phosphatase level, which did come down after IV hydration to 455 and 520 respectively. Vitamin D investigations showed she was mildly low and was started on replacement therapy. Most likely etiology felt to be probably secondary to changes in her bowel anatomy secondary to her surgeries. Since we had stopped the patient's metformin upon discharge, she was covered with sliding scale insulin regimen and Accu-Cheks before each meal and at bedtime which revealed sugars between 97 and 130. At this point in time, we gave lifestyle, diet, and exercise modification education as well as the importance of checking her blood sugars twice daily and recommended for followup as metformin has been stopped indefinitely for the time being and may or may not have been related to her initial presenting problems. The remaining of her chronic conditions were maintained on her home medicines without any complication. DVT prophylaxis maintained with pneumatic compression devices and often ambulation of greater than 3 times daily and greater than 100 feet with each walk. The patient's superficial wound dehiscence at the colostomy site had significantly improved by documentation of the wound care nurse. Dr. Richard, general surgeon, who had seen the patient on previous hospitalization, did evaluate the patient while she was here and also felt there was a vast improvement. Wet-to-dry dressing changes were continued and will continue to need monitoring as an outpatient as well. LABORATORY DATA: Pertinent findings as discussed above in the Hospital Course. Most recent CBC showed a white blood cell count of 8.4, hemoglobin of 10.6, hematocrit of 32.9, and platelet count of 322. Chemistry panel showed a glucose of 90; BUN of 24; creatinine down to 1.2; sodium 139; potassium 4.0; chloride of 106; CO2 of 24, corrected from 19 and 17 respectively; and calcium 8.7. Total protein 7.2. Albumin 2.9. AST 29; ALT of 28; and alkaline phosphatase of 520, down from 700. Total bilirubin 0.2. Magnesium 1.7. Anion gap 13.0. GFR of 46. Her hemoglobin A1c was 5.9. Her initial presenting urinalysis showed red turbid urine with 100 leukocytes, negative nitrites, 500 protein, negative glucose, negative ketones, normal urobilinogen, and negative bilirubin. Microanalysis did show that she had a few bacteria and 10 to 20 white blood cells, but a culture of her urine showed probable contaminants. Amylase and lipase were negative. Iron studies done showed an iron of 18, TIBC of 219, and percent saturation of 6 with a ferritin PATIENT'S NAME: JONATHAN GIBSON [facility] AGE: 61 Y [address] ROOM: [place] [address] LOCATION: [facility] ADMIT DATE: 11/27/2016 Discharge Summary DISCHARGE DATE: 11/30/2016 FAMILY PHYSICIAN: Lamar Ibrahim MD ATTENDING PHYSICIAN: James Gomez V of 116.90. Vitamin B12 was 228. Folate of 14.3. Vitamin D level was 22. RADIOLOGIC IMAGING: Abdominal ultrasound relatively unremarkable, showing minimal collecting system prominence at the right kidney and biliary tree borderline with common duct of [address] abdomen and pelvis had shown said several punctates with nonobstructing left renal stones with double-J bilateral ureteral stents with mild dilatation of the renal collecting system, slightly more so on the right compared to the left, and an unremarkable appearance of the right lower quadrant ostomy site. CONSULTING PROVIDERS: Estefany Barragan APRN, Wound Care. DISCHARGE MEDICATIONS: 1. Amlodipine 5 mg p.o. every day. 2. Aspirin 81 mg p.o. every day. 3. Atorvastatin 10 mg p.o. every day. 4. Cetirizine 10 mg p.o. every night at bedtime. 5. Metoprolol 50 mg p.o. twice daily. 6. Effexor 150 mg p.o. every day. 7. Estradiol and norethindrone 0.5 to 0.1 mg tablet p.o. every day. 8. [place] 10/325 mg one tablet p.o. every 4 hours as needed. 9. Stop metformin. 10. Stop iron. 11. Nitroglycerin 0.4 mg sublingual every 5 minutes as needed for chest pain. 12. Vitamin D 800 units p.o. every day. DISCHARGE INSTRUCTIONS: The patient will be discharged to home to resume home health care. Her diet should remain diabetic 2000 calories. We did discuss the necessity of observation of her carbonates and proteins. She will need to check her blood sugars twice daily and take to her followup. Her activity is without any restrictions. To continue routine ostomy care and follow up in the Wound Clinic and with surgeon Dr. Richard in one week. Her rectal colon surgeon, Dr. Welch, is scheduled to see her on December 14 in [place]. We did go ahead and fax Dr. Richard and Estefany Barragan APRN, consultation notes and most recent wound care notes to his clinic for updates. She is also scheduled to undergo ureteral stent removals at that same timeframe which should go on as planned. She should also follow with her primary care doctor, Dr. Ibrahim, within the next week. I did recommend to have a CBC and CMS drawn at that time at the followup. Certainly, she can see her any sooner if she has problems occur or persist. Home health care is to continue as previous. PATIENT'S NAME: JONATHAN GIBSON [facility] AGE: 61 Y [address] ROOM: [place] [address] LOCATION: [facility] ADMIT DATE: 11/27/2016 Discharge Summary DISCHARGE DATE: 11/30/2016 FAMILY PHYSICIAN: Lamar Ibrahim MD ATTENDING PHYSICIAN: James Gomez V Total time arranging discharge was greater than 30 minutes as collaboration, discharge planning, and coordination with the wound care team, surgeon, updating colorectal surgeon in [place], and discussing line of management with Dr. Ibrahim, her primary care doctor. Thank you for allowing us to participate in the care of this patient while at [facility]. IGNACIO I MIGUELANGEL CRANDALL APRN FOR [employer] SUREKHA CARPIO/rosenda /[id number] CC: MD Lamar Ortega MD d: t: 12/01/16 1258, DISCHARGE SUMMARY
--- NOTE | ~2016-11-27 | CON ---
PATIENT'S NAME: JONATHAN GIBSON [facility] AGE: 61 Y [address] ROOM: [place] [address] LOCATION: [facility] ADMIT DATE: 11/27/2016 Consultation DISCHARGE DATE: FAMILY PHYSICIAN: Lamar Ibrahim MD ATTENDING PHYSICIAN: CHRISTIANO SANCHEZ V DATE OF CONSULTATION: 11/28/2016 REFERRING PHYSICIAN: Christiano Sanchez MD REASON FOR CONSULT: Abdominal wounds. HISTORY OF PRESENT ILLNESS: This is a 61-year-old female patient who was admitted to [facility] with acute kidney injury. She was discharged from the hospital last week. She has a history of a reversal of her colostomy with placement of an ileostomy with the intention of eventual takedown. She reports her ileostomy was placed on November 07 in [place]. She was admitted through the ER, and the web site developer applied a new pouch to the site. The patient was on home health and was packing her abdominal wounds with moist saline gauze, changing twice daily. The patient currently denies fevers, chills, or sweats. She denies abdominal pain. She reports a fair oral intake. She denies chest pain. She does continue to endorse nausea. She also complains of nephrolithiasis as well as UTI symptoms. PAST MEDICAL HISTORY: Essential hypertension; dyslipidemia; osteoarthritis; diverticulitis; nephrolithiasis; frequent UTIs; depression; and per the patient prediabetes. PAST SURGICAL HISTORY: Tubal ligation, total knee arthroplasty, cysto with stent placement, left knee arthroplasty, ruptured diverticula with colostomy placement and reversal, temporary ileostomy, renal stent, and 2 ureteral stents. FAMILY HISTORY: Positive for renal failure and CHF. SOCIAL HISTORY: The patient lives in [place] with her . Per previous records, she quit smoking in 2012. She reports she is a social drinker. ALLERGIES: PENICILLIN, ATORVASTATIN, AND CODEINE. CURRENT MEDICATIONS: PATIENT'S NAME: JONATHAN GIBSON [facility] AGE: 61 Y [address] ROOM: [place] [address] LOCATION: [facility] ADMIT DATE: 11/27/2016 Consultation DISCHARGE DATE: FAMILY PHYSICIAN: Lamar Ibrahim MD ATTENDING PHYSICIAN: CHRISTIANO SANCHEZ V Please refer to the medication administration record. REVIEW OF SYSTEMS: Pertinent positives addressed in the HPI and all the rest are negative. PHYSICAL EXAMINATION: VITAL SIGNS: Temperature 97.6, pulse 99, respirations 18, blood pressure 145/72, and pulse oximetry 100% on room air. Height 5 feet 3 inches and weight 93.8 kg. GENERAL: The patient is alert and oriented x3. In no acute distress. Pleasant with cares. HEENT: Head is normocephalic and atraumatic. Oral mucosa intact. NEUROLOGICAL: Grossly nonfocal. ABDOMEN: Soft and nontender. SKIN: Midline incision to abdomen. Distal aspect, wound dehiscence noted. Area measures 3.0 cm width x 4.5 cm length x 5.0 cm depth. Wound bed is moist pink. Periwound is slightly erythemic, but intact. Moderate serous exudate. Left mid abdomen wound measures 4.5 cm width x 0.7 cm length x 0.4 cm depth. Wound bed is moist pink and slightly scabbed. Periwound is erythemic. Site is slightly indurated. LABORATORY DATA: Hemoglobin A1c 5.9%. CRP 2.83. White blood cell count 8.4, hemoglobin 10.6, hematocrit 32.9, and platelets 322. Sodium 138, potassium 4.4, chloride 109, bicarbonate 19, BUN 32, creatinine 2.0, and glucose 93. Albumin is 3.0. ASSESSMENT AND PLAN: Again, this is a 61-year-old female patient who was admitted to [facility] with acute kidney injury. Wound Care consult for abdominal dehiscence. Abdominal dehiscence secondary to recent colostomy takedown. Wound is down to subcutaneous tissue and depth has filled in since I last visualized the site. We will continue with wet-to-dry dressing changes, changing b.i.d. The patient continues to refuse wound VAC therapy. I will continue to follow and make recommendations. We will need to possibly switch to Aquacel and a foam dressing as wound continues to fill in. The ostomy nurses will assess the patient's ileostomy site and make recommendations during her hospital stay. I discussed the importance of protein intake; however, the patient reports she is nauseated most of the time and hardly eating. I would like to thank Dr. Sanchez for this consult. PATIENT'S NAME: JONATHAN GIBSON [facility] AGE: 61 Y [address] ROOM: [address] [address] LOCATION: [facility] ADMIT DATE: 11/27/2016 Consultation DISCHARGE DATE: FAMILY PHYSICIAN: Lamar Ibrahim MD ATTENDING PHYSICIAN: CHRISTIANO SANCHEZ V RAZ SHANKAR MD MKS/rosenda /[id number] d: 11/28/161856 t: 12/05/16 1029, CONSULTATION REPORT
--- NOTE | ~2016-11-27 | HP ---
PATIENT'S NAME: JONATHAN GIBSON [facility] AGE: 61 Y [address] ROOM: [place] [address] LOCATION: [facility] [place] ADMIT DATE: 11/27/2016 History & Physical DISCHARGE DATE: FAMILY PHYSICIAN: Lamar Ibrahim MD ATTENDING PHYSICIAN: CHRISTIANO SANCHEZ V DATE OF SERVICE: CHIEF COMPLAINT: Diminished appetite and nausea and vomiting. HISTORY OF PRESENT ILLNESS: The patient is a 61-year-old female, familiar to me from prior hospitalization. Her ongoing amalgamation of medical problems is as follows: The patient has recently had a takedown of a colostomy and placement of ileostomy along with placement of bilateral ureteral stents in [place]. This was done due to difficulties with healing of prior colostomy, placed for a distant episode of diverticulitis. The patient also has had recurrent problems with nephrolithiasis and obstruction requiring prior stents in the past. The patient was discharged from our facility approximately 6 days ago. She was admitted with dehydration and a UTI. Since then, the patient has had no significant oral intake and today developed nausea and vomiting. She also has leaking around her right upper quadrant ileostomy. No fevers, chills, chest pain, shortness of breath, or diaphoresis associated with these symptoms. In the ER, the patient had an unremarkable CT scan of her abdomen and lab results showing increasing alkaline phosphatase and acute kidney injury. PAST MEDICAL HISTORY: In addition to the medical problems as described above is significant for: Hps-vamxcyr-dbvtclftf diabetes and depression. Essential hypertension. PAST SURGICAL HISTORY: As per HPI. CURRENT MEDICATIONS ARE: 1. Metformin 850 b.i.d. 2. Metoprolol 50 b.i.d. 3. Aspirin 81 daily. 4. Amlodipine 5 daily. 5. Cetirizine 10 daily. 6. Atorvastatin 10 daily. 7. Ferrous sulfate 325 b.i.d. PATIENT'S NAME: JONATHAN GIBSON [facility] AGE: 61 Y [address] ROOM: [place] [address] LOCATION: [facility] ADMIT DATE: 11/27/2016 History & Physical DISCHARGE DATE: FAMILY PHYSICIAN: Lamar Ibrahim MD ATTENDING PHYSICIAN: CHRISTIANO SANCHEZ V 8. control. 9. Effexor. FAMILY HISTORY: Reviewed and is noncontributory due to known underlying etiology for her presentation. SOCIAL HISTORY: Negative for any ongoing toxic habits. PHYSICAL EXAMINATION: VITAL SIGNS: Blood pressure 115/55, pulse is 104, respiratory rate is 76, temperature 98.0, and saturating 94% on room air. GENERAL: Well-developed, chronically ill-appearing, elderly female, in no acute distress. NEUROLOGIC: Nonfocal. EYES: Show pupils are equal and reactive to light. LYMPHATICS: Shows no cervical lymphadenopathy. ENDOCRINE: Shows no thyromegaly. LUNGS: Clear to auscultation. CARDIOVASCULAR: Heart rate is slightly tachycardic, regular with no appreciable murmurs, gallops, or rubs. GASTROINTESTINAL: Abdomen is soft, nontender, with leaking right upper quadrant colostomy and previously seen superficial dehiscence of her mid abdominal incision. There is also some discharge coming from the incision as well as from a healing left lower quadrant colostomy. VASCULAR: Shows 2+ pedal pulses. MUSCULOSKELETAL: No muscle or joint abnormalities. SKIN: Pale, warm, and dry. PSYCHIATRIC: Appropriate mood, cognition, and affect. LABORATORY DATA: Studies performed in the ER is a CAT scan which shows bilateral ureteral stents with mild bilateral hydronephrosis. Lab results are significant for sodium of 134, bicarbonate of 17, BUN 35, creatinine 2.3, and alkaline phosphatase is 700. White count 8.4, hemoglobin 10.6, and platelets of 322,000. Unremarkable differential. Urinalysis shows 500 protein, packed and 10-20 wbc's with packed rbc's. ASSESSMENT AND PLAN: This is a 61-year-old female, who was admitted with acute kidney injury. I believe that this is related to dehydration as well as metformin effects (the patient is quite acidotic). At this point, there is no evidence of a structural obstruction to her renal function. We will begin the patient on IV fluid hydration. We will check her urine function in the morning. We will PATIENT'S NAME: JONATHAN GIBSON [facility] AGE: 61 Y [address] ROOM: [address] [address] LOCATION: [facility] ADMIT DATE: 11/27/2016 History & Physical DISCHARGE DATE: FAMILY PHYSICIAN: Lamar Ibrahim MD ATTENDING PHYSICIAN: KAGANAS,CHRISTIANO V discontinue her metformin. 1. Nausea, vomiting, and diminished appetite. At this point, I would like to completely discontinue the patient's metformin as it can very well contribute to her diminished appetite. I think the patient is in a catabolic state due to ongoing wound issues and weight loss and as such, we should provide with adequate nutritional intake possible. We will also discontinue her iron as at this point her hemoglobin is normal. We will check her iron studies to see if she may benefit from any supplemental iron, but at this point, I would like to optimize her medical regimen to help encourage best oral intake possible. 2. Fin-xzwvold-qxkkrqctx diabetes. At this point, we will put her on a regular diet. Encourage oral intake. We will check a hemoglobin A1c and hold off on metformin indefinitely. We have other options to control her blood sugar if that becomes a problem. 3. Essential hypertension. We will continue the patient on her antihypertensive regimen. 4. Wound dehiscence. This is superficial and has been followed by Dr. Richard as well as Wound consult. We will get Wound consult to see her again. 5. Leaking colostomy. We will replace the colostomy bag and consider a followup surgical consultation. 6. Obstructive uropathy. This appears to be stable. 7. Alkaline phosphatase elevation. At this point, the underlying etiology of her alkaline phosphatase elevation is unclear. This alkaline phosphatase is unfractionated and as such, I would like to check her vitamin D to see if this may be the source from the bone. We will also get a right upper quadrant ultrasound. My suspicion is the patient may be severely vitamin D deficient. Additional management will depend on clinical course. Time dedicated for this patient's encounter is 35 minutes. MD CALEB PEARSON/rosenda /[id number] D: [id number] T: [id number] HISTORY & PHYSICAL
--- NOTE | ~2016-11-27 | ER ---
PATIENT'S NAME: JONATHAN GIBSON [facility] AGE: 61 Y [address] ROOM: [id number] [place], [place] [address] LOCATION: [facility] [place] ADMIT DATE: 11/27/2016 ER/Outpatient Report DISCHARGE DATE: FAMILY PHYSICIAN: Lamar Ibrahim MD ATTENDING PHYSICIAN: CHRISTIANO SANCHEZ V HISTORY OF PRESENT ILLNESS: This patient is a 61-year-old female, who presented to the emergency room with nausea, vomiting, weight loss, and abdominal pain. The patient was seen by Dr. Stephen initially on arrival to the emergency room. See Dr. Stephen's dictation in regard to the chief complaint, history of present illness, past medical history, physical exam. The patient has a leaking ileostomy. Dr. Stephen transferred the patient's care over to me at shift change. Dr. Stephen has asked me to follow up with the patient's laboratory, study results, final diagnosis, and treatment plan. The patient's CRP was elevated at 2.83. Her chemistry showed a slightly low sodium of 134, low anion gap of 17. Blood glucose is elevated at 114. BUN was 35, creatinine 2.3. GFR was low at 22. The patient had an alkaline phosphatase of 700. Amylase and lipase were normal. Urine showed 10-20 wbc's, packed rbc's, 0-2 epithelial cells, few bacteria per high- powered field, culture pending. Procalcitonin was 0.09. White count was 8400, 72 segs, 16 lymphs, 11 monos, 2 eos. Hemoglobin was 10.6, hematocrit 32.9, platelet count 322,000. The patient did get normal saline fluids, Zofran IV for nausea, Dilaudid IV for pain. CT scan of the abdomen and pelvis showed bilateral ureteral stents with mild bilateral hydronephrosis. The patient had normal liver, normal spleen, normal adrenal glands, normal spleen, normal bladder, normal pancreas, normal bony structure. She does have a right lower quadrant ostomy. No bowel obstruction, no free air or free fluid. CT scan was read by Radiology, see dictated and transcribed report. IMPRESSION: 1. Abdominal pain with nausea and vomiting. 2. Leaking ileostomy. 3. Wound dehiscence. 4. Renal failure. 5. Hypertension. 6. Obesity. 7. Anxiety and depression. 8. Remote tobacco abuse. 9. Hea-kowxkpy-uvfmhgkvm diabetes mellitus type 2. PLAN: Discussed the patient with Dr. Sanchez, hospitalist. Dr. Sanchez had come to the emergency room to evaluate the patient and admit the patient to the hospital. PATIENT'S NAME: JONATHAN GIBSON [facility] AGE: 61 Y [address] ROOM: [place] [address] LOCATION: [facility] [place] ADMIT DATE: 11/27/2016 ER/Outpatient Report DISCHARGE DATE: FAMILY PHYSICIAN: Lamar Ibrahim MD ATTENDING PHYSICIAN: CHRISTIANO SANCHEZ V MD MELANI PERKINS/modl /[id number] d: 11/27/16 2323 t: 11/28/16 1820, OUTPATIENT REPORT
[~2016-11-27 17:18] MED LIST changes: -IMODIUM2 MG PO; -VITAMIN D-40400 UNIT PO; -ZOFRAN4 M1 PO
[2016-11-27 18:23] LABS: BASOPHIL % 0.2 %; EOSINOPHIL # 0.1 K/uL (0.0-0.5); EOSINOPHIL % 1.5 %; HEMATOCRIT 32.9 % (33.0-46.0); HEMOGLOBIN 10.6 g/dL (10.0-15.0); IMMATURE GRANULOCYTE % 0.2 %; LYMPHOCYTE # 1.3 K/uL (0.8-4.0); LYMPHOCYTE % 15.9 %; MCH 26.6 pg (27.0-34.0); MCHC 32.2 gm/dL (32.0-36.5); MCV 82.5 fl (83.0-98.0); MONOCYTE # 0.9 K/uL (0.0-1.0); MONOCYTE % 10.6 %; MPV 9.1 fl (9.4-12.4); NEUTROPHIL % 71.6 %; NRBC % 0 /100WBC (0-0.00); PLATELET COUNT 322 K/uL (150-450); RBC 3.99 M/uL (3.50-5.50); RDW-CV 14.9 % (11.9-14.6); WBC 8.4 K/uL (4.0-11.0)
[2016-11-27 18:40] LABS: ALBUMIN 3.2 gm/dL (3.5-5.0); ANION GAP 15.6 (10.0-19.0); CALCIUM 9.4 mg/dL (8.5-10.5); CREATININE 2.3 mg/dL (0.5-1.1); POTASSIUM 4.6 mMol/L (3.7-5.1); TOTAL BILIRUBIN 0.4 mg/dL (0.0-1.5); TOTAL PROTEIN 8.7 g/dL (6.0-8.4)
[2016-11-27 19:33] LABS: BILIRUBIN URINE NEGATIVE (NEGATIVE); BLOOD URINE 250 /UL (NEGATIVE); COLOR URINE RED (YELLOW); GLUCOSE URINE NEGATIVE (NEGATIVE); KETONE URINE NEGATIVE (NEGATIVE); LEUKOCYTES URINE 100 /UL (NEGATIVE); NITRITE URINE NEGATIVE (NEGATIVE); PROTEIN URINE 500 mg/dL (NEGATIVE); SPEC GRAVITY URINE 1.015 (1.003-1.035); TURBIDITY URINE 4+ (CLEAR); UROBILINOGEN URINE NORMAL (NORMAL)
[2016-11-27 19:42] LABS: BACTERIA URINE FEW (NEGATIVE); EPITHELIAL URINE 0-2 #/HPF (NEGATIVE); RBC URINE PACKED FIELD #/HPF (NEGATIVE)
[2016-11-28 05:44] LABS: ANION GAP 14.4 (10.0-19.0); CALCIUM 8.5 mg/dL (8.5-10.5); MAGNESIUM 1.7 mg/dL (1.8-2.6); PHOSPHORUS 4.4 mg/dL (2.5-4.9); POTASSIUM 4.4 mMol/L (3.7-5.1)
--- NOTE | 2016-11-28 08:12 | NUR ---
61 year old female admitted for nausea, abdominal pain, and renal insuff. Allergies to codeine, lipitor, and penicillin. Hx. of HTN, Type II Diabetes, depression, ureteral stents, kidney stones, and ileostomy. Upon arrival ostomy leaking around edges. Appliance changed in ED. WOC to see first thing in Am. Abdominal US in AM. NPO at midnight. Regular diet. Pt. alert and oriented x3. RA. VSS. Voiding well. IV in L) forearm with fluids at 100ml/hour. SBA with gaitbelt. Zofran given at 0030.
--- NOTE | 2016-11-28 10:45 | NUR ---
Introduced self/role to patient and her Jeremiah, They live in [place]. Denied any barriers to going home or at home. Working with C. Does want [facility] to continue once discharged. Added my name to her marker board, will continue to follow. Added resume HHC to orders, placed note on the chart with C phone and fax number. [phone]ella from [facility] to update them on patient.
--- NOTE | 2016-11-28 16:29 | NUR ---
Significant event: Patient is alert and oriented. VSS on room air. IV to left wrist with fluids running. Has had zofran x1 and percocet x2. Last being at 1130. Switched to norco. Is on ACHS with mild SS. no coverage needed. Had ultrasound this morning. May have clear liquids and advance as tolerated. Did tolerate liquids for lunch. WOC changed ostomy appliance and it was leaking due to it not being clamped. Also dressings to abd changed, wound looking better. Is to ambulate in levi at least TID. Has been ambulating with stand by assist with , without difficulty. Cooperative with cares.
[2016-11-29 04:55] LABS: ALBUMIN 2.7 gm/dL (3.5-5.0); CALCIUM 8.6 mg/dL (8.5-10.5); CREATININE 1.4 mg/dL (0.5-1.1); MAGNESIUM 1.7 mg/dL (1.8-2.6)
[2016-11-29 04:57] LABS: TOTAL BILIRUBIN 0.3 mg/dL (0.0-1.5)
--- NOTE | 2016-11-29 05:13 | NUR ---
Pt. alert and oriented. VSS. RA. IV L) wrist - saline locked. Zofran x1 and norco x1 at HS with relief noted. ACHS with mild sliding scale - no insulin given. Diet is advance as tolerated. Changed ostomy appliance and is currently still leaking agian. WOC consult ordered. 1 assist. Did not eat much for supper. Cooperative with cares.
--- NOTE | 2016-11-29 14:37 | NUR ---
Significant Event: Pt c/o intermittent lower abd pain, good relief with pain meds. Nauseated x1, zofran given with relief. Up ad yefri in room/halls. Changed ostomy bag this am as it was leaking. WOC also changed wafer, has not leaked rest of shift. Changed wet/dry dressing to lower abd. Follow up:
--- NOTE | 2016-11-29 17:07 | NUR ---
Followed patient for HENRIQUE Stevenson today. Patient states doctor indicated she may be able to discharge to home tomorrow. She currently has home health care with [facility] and plans to resume that once she is discharged. Will continue to follow and will fax discharge orders to [facility] once they are ready.
--- NOTE | 2016-11-30 04:45 | NUR ---
Pt. alert and oriented. VSS. RA. Ilestomy to R) lower abdomen. IV L) wrist - saline locked. Last pain pill at HS with relief noted. Slept well throughout shift. Up ad yefri. BID wet/dry dressing on abdomen. ACHS with mild sliding scale. Did not give any insulin. Cooperative and plesant with cares. Possible discharge today.
[2016-11-30 05:01] LABS: ALBUMIN 2.9 gm/dL (3.5-5.0); CALCIUM 8.7 mg/dL (8.5-10.5); CREATININE 1.2 mg/dL (0.5-1.1); MAGNESIUM 1.7 mg/dL (1.8-2.6); TOTAL PROTEIN 7.2 g/dL (6.0-8.4)
[2016-11-30 05:03] LABS: TOTAL BILIRUBIN 0.2 mg/dL (0.0-1.5)
--- NOTE | 2016-11-30 13:00 | NUR ---
Called back [place]elia with [employer] #[phone], no discharge needs other then [facility] which she has approved. Home today. 1430 Faxed orders and meds to [facility].
[2016-11-30] MEDS ORDERED: VITAMIN D-40400 UNIT PO (15:56)
--- NOTE | 2016-11-30 16:20 | NUR ---
Significant Event: Patient has done well this shift. Does eat part of meals and is able to tolerate Ensure Enlive. Up ad yefri in room. Reviewed dressing changes with patient. Patient verbalized understanding. Patient and had questions regarding ostomy supplies--ostomy nurse able to answer questions for them. 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 After doctors ok'd patient to be dismissed, charge nurse processed orders and primary nurse reviewed orders with patient. Patient verbalized understanding of dismissal orders and signed dismissal paperwork. Patient in a wheelchair and taken down to the front doors for dismissal by AD COMPOSITOR. there with the car and going to take patient home.
[2016-12-16] MEDS ORDERED: IMODIUM2 MG PO (13:57)
== END 2016-11-30 16:18 | disposition disaster alternative care site (69) | DRG 683 ==
LOC: GMED 17:18 → GMSU 22:03
PROVIDERS: Family Medicine; Internal Medicine; ADMIT Internal Medicine
DX: N17.9 Acute kidney failure, unspecified (principal); T81.30XA Disruption of wound, unspecified, initial encounter; E87.2 Acidosis; K94.13 Enterostomy malfunction; E11.9 Type 2 diabetes mellitus without complications; D50.9 Iron deficiency anemia, unspecified; E86.0 Dehydration; R11.2 Nausea with vomiting, unspecified; T38.3X5A Adverse effect of insulin and oral hypoglycemic [antidiabetic] drugs, initial encounter; N13.9 Obstructive and reflux uropathy, unspecified; E55.9 Vitamin D deficiency, unspecified; D64.9 Anemia, unspecified; N20.0 Calculus of kidney; E78.5 Hyperlipidemia, unspecified; F32.9 Major depressive disorder, single episode, unspecified; Z87.891 Personal history of nicotine dependence; Z79.84 Long term (current) use of oral hypoglycemic drugs; Z79.82 Long term (current) use of aspirin
CPT/HCPCS: A9270; J1170; J2405; J7030; J7060

== ENCOUNTER 2016-12-03 18:58 | Inpatient (IN) | payer OTHER ==
[~2016-12-03] VITALS: Ht 160 cm; Wt 96.3 kg
--- NOTE | ~2016-12-03 | DS ---
PATIENT'S NAME: JONATHAN GIBSON [facility] AGE: 61 Y [address] ROOM: [address] [place], [place] [address] [place]: [facility] [place] ADMIT DATE: 12/03/2016 Discharge Summary DISCHARGE DATE: 12/08/2016 FAMILY PHYSICIAN: Lamar Ibrahim MD ATTENDING PHYSICIAN: Yobany Horton PRINCIPAL DIAGNOSES: 1. Intractable nausea, vomiting, and abdominal pain. 2. Recent history of reversal of colostomy with placement of an ileostomy. 3. Acute kidney injury. 4. Urinary tract infection. 5. Type 2 diabetes. 6. Status post ileostomy. HOSPITAL COURSE: Please refer to admitting history and physical for a detailed history on initial presentation. This is a 61-year-old female with a known history of recent reversal colostomy then ileostomy and then recurrent admission with a persistent waxing and waning intractable nausea and vomiting and presented with same concerns again. The patient on initial evaluation was noted to be dehydrated and an PERLA with creatinine of 2.1. The patient on presentation was not able to tolerate p.o. intake for 2+ days prior to presentation due to ongoing nausea, vomiting, and abdominal pain. The patient was admitted and supportive care had ensued and was also evaluated by the General Surgery Team. As far as her previous surgical history including recurrent ileostomy everything seemed to be working appropriately. CAT scan of her abdomen with oral contrast done did not show any signs of obstruction and overall did not show any significant findings to explain her symptoms. In any case, the patient today is doing well, tolerating oral intake very well, and nausea and vomiting had been adequately controlled with p.r.n. Zofran. We talked to the patient's general surgeon in [place] that did her initial surgery as well as Dr. Richard and the plan is to continue supportive care and continue to let her bowels heal from multiple surgeries that she has had. I spent a long time discussing this plan with the patient and the patient's and is currently now ready to be discharged in stable condition. In any case, the patient's symptoms recur, we will work on perhaps transferring to [place] to Dr. Welch for further evaluation. The patient currently has an appointment in [place] to see her surgeon on the . She will see her primary care physician within a week as well as with Dr. Richard in 2 to 3 weeks and as needed. The patient of note had been taking metformin for her diabetes and I wonder if metformin use has something to do with her GI symptoms. In any case, I will hold metformin and the patient preference to followup with her primary care physician and deciding other agents to use for her diabetes. PHYSICAL EXAMINATION: GENERAL: On exam today, the patient is awake, alert, oriented x3, in no acute distress. PATIENT'S NAME: JONATHAN GIBSON [facility] AGE: 61 Y [address] ROOM: [address] [address] LOCATION: [facility] [place] ADMIT DATE: 12/03/2016 Discharge Summary DISCHARGE DATE: 12/08/2016 FAMILY PHYSICIAN: Lamar Ibrahim MD ATTENDING PHYSICIAN: Yobany Horton CHEST: Clear to auscultation bilaterally. HEART: S1, S2. Regular rate and rhythm. ABDOMEN: Soft, nontender, nondistended. EXTREMITIES: Without edema. Ileostomy site working well, no signs of wound dehiscence noted. MEDICATIONS: Continue her home medications, hold metformin, we will discharge her on Zofran ODT 4 mg q.8 h. as needed, and I have encouraged her to use Tylenol for pain management as much as possible and avoid narcotics as this can exacerbate nausea as well. Greater than 30 minutes were spent in discharge planning and facilitating. MD SHELIA SCHAEFER/rosenda /[id number] d: 12/09/16 0459 t: 12/12/16 1510, DISCHARGE SUMMARY
--- NOTE | ~2016-12-03 | ER ---
PATIENT'S NAME: JONATHAN GIBSON [facility] AGE: 61 Y [address] ROOM: [address] [address] LOCATION: [facility] [place] ADMIT DATE: 12/03/2016 ER/Outpatient Report DISCHARGE DATE: FAMILY PHYSICIAN: Lamar Ibrahim MD ATTENDING PHYSICIAN: Yobany Horton Time of Arrival: 1858 hours. Time of Evaluation: 1910 hours. CHIEF COMPLAINT: Nausea, vomiting, and weakness. HISTORY OF PRESENT ILLNESS: This is a 61-year-old female, who presents to the ER, who states that she has not been feeling well since early this morning. The patient has a fairly complicated past medical history. She states that she had an abdominal surgery done in [place] on November 15. She states she had a reversal of colostomy and placement of ileostomy with an intention of an eventual takedown of that ileostomy. She states since that surgery she has been hospitalized 2 times here at [facility]. She states that one of the hospitalizations was due to abdominal wound dehiscence and acute kidney injury. She states the other time, she believes that, she was admitted for dehydration and weakness. She states her most recent hospitalization was just this last week, and she was dismissed on Monday. She states that she began having nausea and vomiting today. She has been running some low-grade fevers and has some generalized abdominal pain. The patient states she has had good output out of her ileostomy, and she states that they have been doing some dressing changes and just completed those this evening prior to arrival. She also states that she has some urethral stents placed and those should be removed on December 14. The patient's states that they believe some of her symptoms were due to some of the medications she was on, so they did take her off some medications. ALLERGIES: LIPITOR, PENICILLIN, AND CODEINE. MEDICATIONS: Please see medication list, nurse's notes. PAST MEDICAL HISTORY: 1. Hypertension. 2. Prediabetes. 3. Sepsis due to enterococcus. 4. Complicated course of diverticulitis resulting in resection and colostomy with takedown to ileostomy. She has had a recent history of wound PATIENT'S NAME: JONATHAN GIBSON [facility] AGE: 61 Y [address] ROOM: [address] [address] LOCATION: [facility] [place] ADMIT DATE: 12/03/2016 ER/Outpatient Report DISCHARGE DATE: FAMILY PHYSICIAN: Lamar Ibrahim MD ATTENDING PHYSICIAN: Yobany Horton dehiscence from that surgery. 5. Hyperlipidemia. 6. Hypertension. 7. Obesity. PAST SURGERIES: 1. Total knee arthroplasty. 2. Urethral stents. 3. Lithotripsy. 4. Cholecystectomy. 5. Colostomy. 6. Tubal ligation. 7. Reversal of colostomy and placement of ileostomy. SOCIAL HISTORY: She does live here in [place] for the last 13 months, otherwise they were previously from [place]. REVIEW OF SYSTEMS: All systems reviewed were negative with the exception of those discussed in the HPI. PHYSICAL EXAMINATION: VITAL SIGNS: Height 5 feet 3 inches stated, weight 91.9 kg taken, blood pressure is 137/74, pulse 102, respirations 18, temperature 100.7 degrees tympanically, saturations 97% on room air. [place] Coma Score is 15. GENERAL: Alert, pleasant female, in no acute distress. HEENT: Head: Normocephalic. She does display moist mucous membranes. Eyes: Pupils are equal and reactive to light. NECK: Supple. No lymphadenopathy. LUNGS: Clear to auscultation. HEART: Slightly tachycardic. Normal rhythm. ABDOMEN: Soft. It is nondistended. She has some generalized tenderness to palpation in all 4 quadrants. No guarding or rebound tenderness. Her ileostomy is draining adequately. SKIN: She does have a midline incision with some wet-to-dry packing noted to that, healing incision site. There is no surrounding erythema, no active drainage from that area. She also has 2 other small incisions that are open, that are just covered with gauze. There is no surrounding erythema with those. There are no active drainage from those. EXTREMITIES: She does have good range of motion of her lower extremities. No edema noted. NEURO: Cranial nerves 2 through 12 grossly intact. The patient is alert and oriented. PATIENT'S NAME: JONATHAN GIBSON [facility] [place] AGE: 61 Y [address] ROOM: [address] [address] LOCATION: [facility] [place] ADMIT DATE: 12/03/2016 ER/Outpatient Report DISCHARGE DATE: FAMILY PHYSICIAN: Lamar Ibrahim MD ATTENDING PHYSICIAN: Yobany Horton LABORATORY DATA: CBC: White count is 8.9, hemoglobin is 10.1, platelets are 250, ANC is 6.9. CMS: Sodium is 135, potassium is 4.5, glucose is 114, BUN is 24, creatinine is 1.9, alkaline phosphatase is 634, AST is 30, ALT is 42, estimated GFR is 27. Urinalysis: Leukocytes 500, nitrites negative, protein 500, blood is 250. UA micro: White blood cells 20 to 50, red blood cells 50 to 100, epithelial 0 to 2, bacteria many, yeast few, white blood cell clumps moderate. Clot was drawn. IMPRESSION: 1. Nausea and vomiting. 2. Weakness. 3. Recent abdominal surgery done in November, colostomy takedown to ileostomy. 4. Urinary tract infection with history of urethral stents 5. Alkaline phosphatase elevation. ASSESSMENT AND PLAN: I did discuss the patient's care with Dr. Stephen. We did start an IV here in the emergency room and did give her some IV fluids along with 4 mg of Zofran and 0.5 mg of Dilaudid. The patient did rest comfortably here her entire stay. I did speak with Dr. Horton in regard to the patient; he will be placing the patient back in the hospital for further observation. The patient and the patient's understand and agree with care. VERNON GORE PA-C FOR MD HAROLDO BAUTISTA/rosenda /[id number] d: 12/04/16 0349 t: 12/09/16 1249, OUTPATIENT REPORT
--- NOTE | ~2016-12-03 | HP ---
PATIENT'S NAME: JONATHAN GIBSON [facility] AGE: 61 Y [address] ROOM: [place] [address] LOCATION: [facility] ADMIT DATE: 12/03/2016 History & Physical DISCHARGE DATE: FAMILY PHYSICIAN: Lamar Ibrahim MD ATTENDING PHYSICIAN: Josefina Camacho DATE OF SERVICE: CHIEF COMPLAINT: "Not feeling well." HISTORY PRESENTING ILLNESS: This 61-year-old, white female, who is well known to our service, returned to the emergency department this evening with complaints of nausea, vomiting, weakness, and lethargy of a little more than 24 hours' duration. She was just discharged this past Monday for similar complaints. She had been treated previously for urinary tract infection. Cultures grew E. coli, that were pansensitive. She reports she felt well on the day of her discharge. The next day she felt even better, however on Monday, she began to feel progressively unwell. She developed progressive nausea and then this morning she was unable to keep anything down at all. She complains of feeling progressively weaker. She thinks she has had some low-grade fevers, but admits she has not actually taken her temperature. She denies headache, does complain of a little dizziness and lightheadedness, but has not fallen. No visual disturbances. She denies chest pain or shortness of breath. No significant congestion or cough. She denies any significant abdominal pain. She continues to perform wet-to-dry dressings to a draining wound next to the ileostomy. The ileostomy itself has been functioning normally. She does admit to some mild dysuria, but denies frequency or urgency. No numbness or tingling in her extremities or any associated physical or constitutional complaints. ALLERGIES: PENICILLIN, CODEINE, AND ATORVASTATIN. ILLNESSES: 1. Diverticulitis, status post resection with colostomy and subsequent takedown, then ileostomy. 2. Obstructive uropathy, status post bilateral ureteral stent placement. 3. Diabetes mellitus, type 2. 4. Essential hypertension. 5. Iron deficiency anemia. 6. Hyperlipidemia. 7. Morbid obesity. PATIENT'S NAME: JONATHAN GIBSON [facility] AGE: 61 Y [address] ROOM: [place] [address] LOCATION: [facility] ADMIT DATE: 12/03/2016 History & Physical DISCHARGE DATE: FAMILY PHYSICIAN: Lamar Ibrahim MD ATTENDING PHYSICIAN: Josefina Camacho 8. Depression/anxiety. 9. Isolated elevation of alkaline phosphatase. CURRENT MEDICATIONS: 1. Amlodipine 5 mg p.o. daily. 2. Aspirin 81 mg p.o. daily. 3. Atorvastatin 10 mg p.o. daily. 4. Cetirizine 10 mg p.o. at bedtime. 5. Metoprolol 50 mg p.o. b.i.d. 6. Effexor 150 mg p.o. daily. 7. Estradiol/norethindrone 0.5-1 mg tablet p.o. daily. 8. Egan 10/325 one tab p.o. q.4 hours p.r.n. 9. Nitroglycerin p.r.n. 10. Vitamin D 800 units p.o. daily. FAMILY HISTORY: Negative for heart disease or stroke. SOCIAL HISTORY: She is . Lives here in [place]. She is a homemaker. She does have a [id number] history of smoking tobacco, but has been quit for a little more than 3 years. No significant alcohol use. REVIEW OF SYSTEMS: As per HPI. All other organ systems reviewed and are negative. OBJECTIVE: VITAL SIGNS: Temperature 100, pulse 90, respirations 16, blood pressure 119/64, and O2 saturation 94% on room air. GENERAL: She is very pleasant, cooperative, lying in bed, in no acute distress. SKIN: Supple, pink, warm, and dry. There are no obvious rashes. The wound overlying the mid abdomen is clean and intact. There is some wet gauze present, a little bit of exudative debris, but no purulence. The ileostomy site is intact. HEENT: Otherwise, normocephalic. Sclerae nonicteric. Pupils are equal, round, and reactive to light and accommodation. Extraocular movements appear intact. Nasal turbinates are normal in appearance. Oropharynx is clear. Mucous membranes are pink and moist. NECK: Supple. No masses or adenopathy. No thyromegaly. No JVD. CHEST: Chest wall is symmetrical. HEART: Regular without murmurs. LUNGS: Clear bilaterally. ABDOMEN: Soft and obese. Nontender. Bowel sounds present. No mass or hepatosplenomegaly. The ileostomy site is intact over the right abdomen with PATIENT'S NAME: JONATHAN GIBSON [facility] AGE: 61 Y [address] ROOM: [id number] [place], [place] [address] LOCATION: [facility] ADMIT DATE: 12/03/2016 History & Physical DISCHARGE DATE: FAMILY PHYSICIAN: Lamar Ibrahim MD ATTENDING PHYSICIAN: Josefina Camacho some greenish brown stool present. AND RECTAL: Normal female external genitalia. EXTREMITIES: Display trace pitting edema. No cyanosis. NEUROLOGICAL: No focal deficits. LABORATORY AND X-RAY DATA: CBC showed a white blood cell count 8.9, hemoglobin 10.1, hematocrit 31.5, and platelets 250. Chemistries reveal BUN and creatinine 24 and 1.9 respectively, sodium and potassium 135 and 4.5, chloride and CO2 are 106 and 19, calcium is 9.0, AST and ALT 30 and 42, bilirubin is 0.4, alkaline phosphatase was 634, and glucose 114. Urinalysis demonstrated 20-50 wbc's and 50-100 rbc's. Lactate and procalcitonin and GGT are pending. ASSESSMENT/PLAN: 1. Nausea and vomiting. We will admit for observation. Provide some supportive cares including IV fluids and symptomatic treatment with Zofran. We will try to advance her diet carefully. 2. Suspected urinary tract infection. We will submit urine for culture and sensitivity. She did receive partial treatment with ciprofloxacin at her prior hospital stay. We will start Rocephin empirically and monitor and follow up on culture results when they are known. 3. Acute kidney injury. She appears prerenal. We will initiate careful IV fluid hydration therapy as above. 4. Diabetes mellitus, type 2. We will manage with Accu-Cheks and sliding scale insulin while she is inpatient. Continue to hold the metformin. 5. Obstructive uropathy, status post bilateral ureteral stent placement. She is scheduled to have ureteral stent removal in a couple of weeks. We will ensure close followup. 6. Diverticulitis, status post multiple abdominal surgeries with resultant ileostomy, currently stable. The ostomy appears to be functioning normally. We will continue with routine ostomy cares and monitor. 7. Essential hypertension, appears to be adequately controlled. We will continue to monitor. 8. Wound dehiscence, mid abdomen. Continue with wet-to-dry dressings and monitor. 9. Morbid obesity. We will work on some long-term strategies for weight loss including calorie reduction, increased exercise, etc. 10. Moderate protein-calorie malnutrition. Encourage balanced dietary intake. 11. Iron deficiency anemia, appears stable, but off iron currently. 12. Deep venous thrombosis prophylaxis. We will use low-dose Lovenox while she is inpatient. PATIENT'S NAME: JONATHAN GIBSON [facility] AGE: 61 Y [address] ROOM: [place] [address] LOCATION: [facility] ADMIT DATE: 12/03/2016 History & Physical DISCHARGE DATE: FAMILY PHYSICIAN: Lamar Ibrahim MD ATTENDING PHYSICIAN: Josefina Camacho JOSEFINA CAMACHO MD AJBeltran/modl /[id number] D: [id number] T: [id number] HISTORY & PHYSICAL
[~2016-12-03 18:58] MED LIST changes: +VITAMIN D-40400 UNIT PO
[2016-12-03 19:42] LABS: BILIRUBIN URINE NEGATIVE (NEGATIVE); BLOOD URINE 250 /UL (NEGATIVE); COLOR URINE YELLOW (YELLOW); GLUCOSE URINE NEGATIVE (NEGATIVE); KETONE URINE NEGATIVE (NEGATIVE); LEUKOCYTES URINE 500 /UL (NEGATIVE); NITRITE URINE NEGATIVE (NEGATIVE); PROTEIN URINE 500 mg/dL (NEGATIVE); SPEC GRAVITY URINE 1.015 (1.003-1.035); TURBIDITY URINE 3+ (CLEAR); UROBILINOGEN URINE NORMAL (NORMAL)
[2016-12-03 20:00] LABS: RBC URINE 50-100 #/HPF (NEGATIVE)
[2016-12-03 20:02] LABS: AMORPHOUS URINE 1+ (NEGATIVE); EPITHELIAL URINE 0-2 #/HPF (NEGATIVE); WBC URINE 20-50 #/HPF (NEGATIVE)
[2016-12-03 20:04] LABS: WBC CLUMPS URINE MODERATE (NEGATIVE)
[2016-12-03 20:09] LABS: BASOPHIL % 0.1 %; EOSINOPHIL # 0.1 K/uL (0.0-0.5); EOSINOPHIL % 0.9 %; HEMATOCRIT 31.5 % (33.0-46.0); HEMOGLOBIN 10.1 g/dL (10.0-15.0); IMMATURE GRANULOCYTE % 0.4 %; LYMPHOCYTE # 0.9 K/uL (0.8-4.0); LYMPHOCYTE % 10.5 %; MCH 26.2 pg (27.0-34.0); MCHC 32.1 gm/dL (32.0-36.5); MCV 81.8 fl (83.0-98.0); MONOCYTE % 10.9 %; NEUTROPHIL # (ANC) 6.9 K/uL (1.8-7.8); NEUTROPHIL % 77.2 %; NRBC % 0 /100WBC (0-0.00); RBC 3.85 M/uL (3.50-5.50); RDW-CV 14.7 % (11.9-14.6); WBC 8.9 K/uL (4.0-11.0)
[2016-12-03 20:11] LABS: PLATELET COUNT 250 K/uL (150-450)
[2016-12-03 20:21] LABS: BACTERIA URINE MANY (NEGATIVE)
[2016-12-03 20:23] LABS: YEAST URINE FEW (NEGATIVE)
[2016-12-03 20:26] LABS: ALBUMIN 3.1 gm/dL (3.5-5.0); ANION GAP 14.5 (10.0-19.0); CREATININE 1.9 mg/dL (0.5-1.1); POTASSIUM 4.5 mMol/L (3.7-5.1); TOTAL PROTEIN 8.2 g/dL (6.0-8.4)
[2016-12-03 20:28] LABS: TOTAL BILIRUBIN 0.4 mg/dL (0.0-1.5)
[2016-12-04 05:27] LABS: BASOPHIL % 0.1 %; EOSINOPHIL # 0.1 K/uL (0.0-0.5); EOSINOPHIL % 0.7 %; HEMATOCRIT 28.7 % (33.0-46.0); HEMOGLOBIN 9.1 g/dL (10.0-15.0); IMMATURE GRANULOCYTE % 0.5 %; LYMPHOCYTE # 1.1 K/uL (0.8-4.0); LYMPHOCYTE % 14.6 %; MCH 26.2 pg (27.0-34.0); MCHC 31.7 gm/dL (32.0-36.5); MCV 82.7 fl (83.0-98.0); MONOCYTE # 1.1 K/uL (0.0-1.0); MONOCYTE % 14.7 %; MPV 9.3 fl (9.4-12.4); NEUTROPHIL # (ANC) 5.1 K/uL (1.8-7.8); NEUTROPHIL % 69.4 %; NRBC % 0 /100WBC (0-0.00); PLATELET COUNT 213 K/uL (150-450); RBC 3.47 M/uL (3.50-5.50); WBC 7.3 K/uL (4.0-11.0)
[2016-12-04 05:48] LABS: ALBUMIN 2.7 gm/dL (3.5-5.0); ANION GAP 12.6 (10.0-19.0); CALCIUM 8.3 mg/dL (8.5-10.5); CREATININE 1.7 mg/dL (0.5-1.1); POTASSIUM 4.6 mMol/L (3.7-5.1); TOTAL PROTEIN 7.2 g/dL (6.0-8.4)
[2016-12-04 05:50] LABS: TOTAL BILIRUBIN 0.3 mg/dL (0.0-1.5)
[2016-12-05 05:14] LABS: ALBUMIN 2.5 gm/dL (3.5-5.0); ANION GAP 12.1 (10.0-19.0); CALCIUM 7.9 mg/dL (8.5-10.5); CREATININE 1.6 mg/dL (0.5-1.1); MAGNESIUM 1.5 mg/dL (1.8-2.6); POTASSIUM 4.1 mMol/L (3.7-5.1); TOTAL BILIRUBIN 0.3 mg/dL (0.0-1.5); TOTAL PROTEIN 6.9 g/dL (6.0-8.4)
[2016-12-06 06:04] LABS: ALBUMIN 2.1 gm/dL (3.5-5.0); ANION GAP 9.7 (10.0-19.0); CREATININE 1.2 mg/dL (0.5-1.1); MAGNESIUM 1.6 mg/dL (1.8-2.6); POTASSIUM 3.7 mMol/L (3.7-5.1); TOTAL PROTEIN 6.3 g/dL (6.0-8.4)
[2016-12-06 06:05] LABS: TOTAL BILIRUBIN 0.2 mg/dL (0.0-1.5)
[2016-12-07 06:00] LABS: ALBUMIN 2.1 gm/dL (3.5-5.0); ANION GAP 12.6 (10.0-19.0); MAGNESIUM 1.3 mg/dL (1.8-2.6); POTASSIUM 3.6 mMol/L (3.7-5.1); TOTAL BILIRUBIN 0.2 mg/dL (0.0-1.5); TOTAL PROTEIN 6.2 g/dL (6.0-8.4)
[2016-12-08 05:04] LABS: ALBUMIN 2.1 gm/dL (3.5-5.0); ALK PHOS 383 IU/L (33-138); ALT 20 IU/L (12-78); ANION GAP 10.2 (10.0-19.0); AST 17 IU/L (10-40); BLOOD UREA NITROGEN 3 mg/dL (6-24); CALCIUM 8.4 mg/dL (8.5-10.5); CHLORIDE 103 mMol/L (96-110); CO2 27 mMol/L (22-32); CREATININE 0.9 mg/dL (0.5-1.1); ESTIMATED GFR (MDRD EQUATION) > 60; POTASSIUM 3.2 mMol/L (3.7-5.1); SODIUM 137 mMol/L (135-145); TOTAL BILIRUBIN 0.2 mg/dL (0.0-1.5); TOTAL PROTEIN 6.5 g/dL (6.0-8.4)
[2016-12-08 05:08] LABS: MAGNESIUM 1.2 mg/dL (1.8-2.6)
[2016-12-08] MEDS ORDERED: ZOFRAN4 M1 PO (14:59)
[2016-12-16] MEDS ORDERED: IMODIUM2 MG PO (13:57)
== END 2016-12-08 16:25 | disposition disaster alternative care site (69) | DRG 683 ==
LOC: GMED 18:58 → GMSU 21:25
PROVIDERS: Internal Medicine; Physician Assistant Medical; ADMIT Family Medicine
DX: N17.9 Acute kidney failure, unspecified (principal); T81.30XA Disruption of wound, unspecified, initial encounter; E44.0 Moderate protein-calorie malnutrition; E66.01 Morbid (severe) obesity due to excess calories; E11.9 Type 2 diabetes mellitus without complications; D50.9 Iron deficiency anemia, unspecified; I10 Essential (primary) hypertension; N39.0 Urinary tract infection, site not specified; R11.2 Nausea with vomiting, unspecified; E86.0 Dehydration; Z79.84 Long term (current) use of oral hypoglycemic drugs; Z93.2 Ileostomy status; Z93.3 Colostomy status; E78.5 Hyperlipidemia, unspecified; F32.9 Major depressive disorder, single episode, unspecified; Z87.891 Personal history of nicotine dependence; Z68.36 Body mass index [BMI] 36.0-36.9, adult
CPT/HCPCS: A9270; C1751; J0696; J0780; J1170; J1650; J2405; J3475; J3480; J7030; J7040; J7050; J7060; J7120; Q0162

== ENCOUNTER → 2016-12-19 | Day surgery (SDC) | payer OTHER ==
[~2016-12-19] MED LIST changes: +IMODIUM2 MG PO; +ZOFRAN4 M1 PO
== END | disposition disaster alternative care site (69) ==
LOC: GPOC 12-16 17:00
PROC: 06HY33Z Insertion of Infusion Device into Lower Vein, Percutaneous Approach (ICD-10-PCS; principal; 2016-12-19)
DX: K94.19 Other complications of enterostomy (principal); Z88.0 Allergy status to penicillin; Z88.5 Allergy status to narcotic agent; Z88.8 Allergy status to other drugs, medicaments and biological substances; Z79.82 Long term (current) use of aspirin; Z79.899 Other long term (current) drug therapy
CPT/HCPCS: C1751; J7030

== ENCOUNTER → 2016-12-22 | Outpatient (CLI) | payer OTHER ==
[2016-12-22 13:31] LABS: ANION GAP 14.3 (10.0-19.0); CALCIUM 8.8 mg/dL (8.5-10.5); CREATININE 1.3 mg/dL (0.5-1.1); POTASSIUM 4.3 mMol/L (3.7-5.1)
== END | disposition disaster alternative care site (69) ==
LOC: LHHL 13:13
PROVIDERS: Family Medicine
DX: E11.22 Type 2 diabetes mellitus with diabetic chronic kidney disease (principal); I12.9 Hypertensive chronic kidney disease with stage 1 through stage 4 chronic kidney disease, or unspecified chronic kidney disease; N18.3 Chronic kidney disease, stage 3 (moderate)

== ENCOUNTER → 2016-12-29 | Outpatient (CLI) | payer OTHER ==
[2016-12-29 11:11] LABS: ANION GAP 11.8 (10.0-19.0); CALCIUM 9.2 mg/dL (8.5-10.5); CREATININE 1.3 mg/dL (0.5-1.1); POTASSIUM 4.8 mMol/L (3.7-5.1)
== END | disposition disaster alternative care site (69) ==
LOC: LHHL 10:59
PROVIDERS: Family Medicine
DX: N17.9 Acute kidney failure, unspecified (principal)

== ENCOUNTER → 2017-01-05 | Outpatient (CLI) | payer OTHER ==
[2017-01-05 13:07] LABS: ANION GAP 12.3 (10.0-19.0); CALCIUM 9.2 mg/dL (8.5-10.5); CREATININE 1.4 mg/dL (0.5-1.1); POTASSIUM 4.3 mMol/L (3.7-5.1)
== END | disposition disaster alternative care site (69) ==
LOC: LHHL 12:50
PROVIDERS: Family Medicine
DX: N17.9 Acute kidney failure, unspecified (principal)

== ENCOUNTER → 2017-01-12 | Outpatient (CLI) | payer OTHER ==
[2017-01-12 09:50] LABS: ANION GAP 14.2 (10.0-19.0); CALCIUM 9.5 mg/dL (8.5-10.5); CREATININE 1.3 mg/dL (0.5-1.1); POTASSIUM 4.2 mMol/L (3.7-5.1)
== END ==
LOC: LHHL 09:14
PROVIDERS: Family Medicine
DX: N17.9 Acute kidney failure, unspecified (principal); I12.9 Hypertensive chronic kidney disease with stage 1 through stage 4 chronic kidney disease, or unspecified chronic kidney disease; N18.3 Chronic kidney disease, stage 3 (moderate)

== ENCOUNTER → 2017-01-19 | Outpatient (CLI) | payer OTHER ==
[2017-01-19 09:53] LABS: ANION GAP 15.1 (10.0-19.0); CALCIUM 8.9 mg/dL (8.5-10.5); CREATININE 1.1 mg/dL (0.5-1.1); POTASSIUM 4.1 mMol/L (3.7-5.1)
== END ==
LOC: LHHL 09:30
PROVIDERS: Family Medicine
DX: N17.9 Acute kidney failure, unspecified (principal); N18.3 Chronic kidney disease, stage 3 (moderate); Z93.2 Ileostomy status

== ENCOUNTER → 2017-01-26 | Outpatient (CLI) | payer OTHER ==
[2017-01-26 09:50] LABS: ANION GAP 14.3 (10.0-19.0); CALCIUM 9.1 mg/dL (8.5-10.5); CREATININE 1.4 mg/dL (0.5-1.1); POTASSIUM 4.3 mMol/L (3.7-5.1)
== END ==
LOC: LHHL 09:36
PROVIDERS: Family Medicine
DX: N17.9 Acute kidney failure, unspecified (principal); Z93.2 Ileostomy status; I12.9 Hypertensive chronic kidney disease with stage 1 through stage 4 chronic kidney disease, or unspecified chronic kidney disease; Z45.2 Encounter for adjustment and management of vascular access device

== ENCOUNTER → 2017-02-02 | Outpatient (CLI) | payer OTHER ==
[2017-02-02 09:45] LABS: ANION GAP 15.2 (10.0-19.0); CREATININE 1.1 mg/dL (0.5-1.1); POTASSIUM 4.2 mMol/L (3.7-5.1)
== END ==
LOC: LHHL 09:31
PROVIDERS: Family Medicine
DX: N17.9 Acute kidney failure, unspecified (principal); I12.9 Hypertensive chronic kidney disease with stage 1 through stage 4 chronic kidney disease, or unspecified chronic kidney disease; N18.9 Chronic kidney disease, unspecified

== ENCOUNTER → 2017-02-09 | Outpatient (CLI) | payer OTHER ==
[2017-02-09 11:52] LABS: ANION GAP 14.1 (10.0-19.0); CALCIUM 8.7 mg/dL (8.5-10.5); CREATININE 1.2 mg/dL (0.5-1.1); POTASSIUM 4.1 mMol/L (3.7-5.1)
== END ==
LOC: LHHL 11:32
PROVIDERS: Family Medicine
DX: N71.9 Inflammatory disease of uterus, unspecified (principal); I12.9 Hypertensive chronic kidney disease with stage 1 through stage 4 chronic kidney disease, or unspecified chronic kidney disease

== ENCOUNTER → 2017-02-16 | Outpatient (CLI) | payer OTHER ==
[2017-02-16 11:54] LABS: ANION GAP 13.2 (10.0-19.0); CREATININE 1.4 mg/dL (0.5-1.1); POTASSIUM 4.2 mMol/L (3.7-5.1)
== END ==
LOC: LHHL 11:36
PROVIDERS: Family Medicine
DX: N17.9 Acute kidney failure, unspecified (principal); E11.22 Type 2 diabetes mellitus with diabetic chronic kidney disease